=== PATIENT | female | born 1940 | race Caucasian/White ===

== ENCOUNTER 2017-08-28 17:08 | Outpatient (CLI) | payer MEDICARE ==
--- NOTE | 2017-08-28 19:48 | SJPRAD ---
LEFT RIBS FOUR VIEWS 08/28/17 HISTORY: Fall. Left chest wall injury. FINDINGS: No displaced rib fracture or pneumothorax are apparent. Radiopaque sutures project over the left low er neck. IMPRESSION: No significant abnormalities are demonstrated. POS: ASIA
== END 2017-08-28 17:09 | disposition home or self-care (01) ==
LOC: MWLC RAD 17:08
PROVIDERS: ATTEND Internal Medicine Geriatric Medicine
DX: R10.9 Unspecified abdominal pain (principal)

== ENCOUNTER 2017-12-21 15:17 | Outpatient (CLI) | payer MEDICARE | END 2017-12-21 15:18 | disposition home or self-care (01) | LOC: BICMAMMO 15:17 | PROVIDERS: ATTEND Internal Medicine Geriatric Medicine | DX: Z12.31 Encounter for screening mammogram for malignant neoplasm of breast (principal); Z80.3 Family history of malignant neoplasm of breast | CPT/HCPCS: 77063; 77067 ==

== ENCOUNTER 2018-04-19 10:04 | Outpatient (CLI) | payer MEDICARE | END 2018-04-19 10:05 | disposition home or self-care (01) | LOC: BICRAD 10:04 | PROVIDERS: ATTEND Neurological Surgery | DX: M54.16 Radiculopathy, lumbar region (principal); M43.16 Spondylolisthesis, lumbar region | CPT/HCPCS: 72100 ==

== ENCOUNTER 2018-04-30 16:04 | Outpatient (CLI) | payer MEDICARE | END 2018-04-30 16:05 | disposition home or self-care (01) | LOC: BICRAD 16:04 | PROVIDERS: ATTEND Internal Medicine Geriatric Medicine | DX: Z01.818 Encounter for other preprocedural examination (principal) | CPT/HCPCS: 71046 ==

== ENCOUNTER 2018-06-18 09:00 | Inpatient (IN) | payer MEDICARE ==
[2018-06-18 16:20] VITALS: BMI 22.4
--- NOTE | 2018-06-19 12:40 | HP ---
HISTORY OF PRESENT ILLNESS: This is a very pleasant 78-year-old female who reports to our office for 1 year history of low back pain. She states there was no injury associated, however, it has progres sively gotten worse in the last year. She states that if she has to pick her legs up to step into he r tub they feel very heavy. There are times that she has to cough or sneeze and she will have to sit down because it increases her pain. She has left greater than right pain down into her foot. If sh e sits for any length of time, she gets tingly and numbness on the left side. If she walks for any l ength of time, she gets relief when she bends over, like leaning on the cart in the grocery store. H er pain level fluctuates from a 5 to a 10/10. The patient has tried epidural steroid injections in t he past without much benefit and she has also had physical therapy and a course of medications. Thes e do not give her much relief either. REVIEW OF SYSTEMS: A 10-point review of systems has been completed and is otherwise negative other t ibarra stated above in the HPI. PAST MEDICAL HISTORY: Thyroid benign bilateral adenoma, hypertension, vertigo, aortic aneurysm. PAST SURGICAL HISTORY: Ovarian cyst removal, thyroidectomy, several dilation and curretage, menstrua l difficulties, right breast cyst removal in her late 30s. FAMILY HISTORY: Father is , diagnosed with hypertension, heart disease, stroke, and cancer. Mother is , diagnosed with diabetes and cancer. Patient has 1 son who from a he art attack and 1 son that is alive and 1 daughter that is alive. SOCIAL HISTORY: The patient is a nonsmoker. Drinks wine occasionally. Does not use any other illic it drugs. She lives alone. She is retired, with 2 children and drinks caffeine daily. MEDICATIONS: Takes a multivitamin, aspirin 81 mg, tramadol, acetaminophen, metoprolol, levothyroxine , sertraline. ALLERGIES: PENICILLIN, EPINEPHRINE. PHYSICAL EXAMINATION: CONSTITUTIONAL: Well-appearing, well-nourished, alert. NEUROLOGIC: Mental status, oriented to time, place and person. Normal attention span and concentrat ion. Speech is spontaneous and fluent comprehension intact. Content appropriate. Normal [facility]. CRANIAL NERVES: Pupils equal, round, reactive to light. Extraocular movements are intact. Hearing is intact. MOTOR: Muscle strength normal in lower extremities. Muscle tone and bulk normal in lower extremitie s, 5/5 bilateral strength in IP, KE, KS, DP, PS, EHL, no radiculopathy, negative single leg raise kieran ateral, rotation of bilateral hips normal, tender to palpate at L5. DEEP TENDON REFLEXES: 2+ patellar bilaterally, 1+ ankle bilaterally. No clonus. SENSORY: Light touch intact. Gait and station sit to stand, slow normal gait. RESPIRATORY: Normal work of breathing on room air. SKIN: No rashes or lesions on exposed skin. PSYCHIATRIC: Normal mood and affect. IMAGING: MRI of the lumbar spine shows anterolisthesis of L4 on L5. She has a significant compressi on of the spinal canal. ASSESSMENT AND PLAN: Spondylolisthesis of L4-L5 with lumbar radiculopathy. Dr. Rivera has offere d a laminectomy with a TLIF at L4-L5. The risks and benefits of surgery have been discussed. The ri sks discussed included, but were not limited to bleeding, infection, CSF leak, nerve damage, weakness , incontinence, cauda equina injury, arachnoiditis, paralysis, ventilator dependence, wheelchair depe ndence, loss of vision, hardware misplacement, cardiopulmonary complications of anesthesia or . Long-term complications have been discussed and included, but were not limited to degradation of melissa rounding disks and the need for further surgery. The patient states that she understands the risks o f surgery and is willing to move forward.
[2018-06-20] MEDS ORDERED: Levofloxacin 500 mg/D5W 100 ml Premix Bag ONE (06:14)
[2018-06-20] MEDS ORDERED: Clindamycin/D5W 900 mg/50 ml Premix Bag ONE (06:14)
[2018-06-20] MEDS ORDERED: Sodium Chloride 0.9% 20 ML ONE (06:17)
[2018-06-20] MEDS ORDERED: Bupivacaine HCl 0.5%/Epinephrine 1:200,000/PF 30 ml Vial ONE (06:17)
[2018-06-20] MEDS ORDERED: Thrombin 5000 UNITS/5 ML VIAL ONE ×2 (06:18)
[2018-06-20] MEDS ORDERED: Fentanyl 250 MCG/5 ML VIAL ONE (06:51)
[2018-06-20] MEDS ORDERED: Bupivacaine PF 0.5% 30 ML VIAL ONE (07:45)
[2018-06-20] MEDS ORDERED: Ondansetron HCl/PF 4 MG/2 ML Vial IVP PRN ×2 (11:38→13:59)
[2018-06-20] MEDS ORDERED: Promethazine HCl 25 MG/ML VIAL IM PRN (11:38)
[2018-06-20] MEDS ORDERED: Promethazine HCl 25 MG/ML VIAL SLOW IVP PRN (11:38)
[2018-06-20] MEDS ORDERED: Fentanyl 100 MCG/2 ML VIAL ONE (11:55)
[2018-06-20] MEDS ORDERED: Mag-Al 1200 mg/1200 mg/30 ML UDCUP PO PRN (13:59)
[2018-06-20] MEDS: Sodium Chloride 0.9% 1,000 ML IV SCH (13:59)
[2018-06-20] MEDS ORDERED: Promethazine 25 MG TAB PO PRN (13:59)
[2018-06-20] MEDS ORDERED: Milk Of Magnesia 30 ML UDCUP PO PRN (13:59)
[2018-06-20] MEDS ORDERED: diphenhydrAMINE 25 MG CAP PO PRN (13:59)
[2018-06-20] MEDS ORDERED: Promethazine HCl 12.5 MG SUPP PR PRN (13:59)
[2018-06-20] MEDS ORDERED: Acetaminophen/Codeine 30-300mg Tablet PO PRN ×2 (13:59)
[2018-06-20] MEDS ORDERED: Zolpidem Tartrate 5 MG TAB PO PRN (13:59)
[2018-06-20] MEDS ORDERED: tiZANidine HCl 4 MG TAB PO PRN (13:59)
[2018-06-20] MEDS ORDERED: Acetaminophen 650 MG Suppository PR PRN (13:59)
[2018-06-20] MEDS ORDERED: Bisacodyl 10 MG SUPP PR PRN (13:59)
[2018-06-20] MEDS ORDERED: Fleet Enema 133 ML BOT PR PRN (13:59)
[2018-06-20] MEDS ORDERED: diphenhydrAMINE 50 MG/ML VIAL IVP PRN (13:59)
--- NOTE | 2018-06-20 14:06 | OP ---
DATE OF PROCEDURE: 06/20/2018 NEUROSURGERY OPERATIVE REPORT SURGEON: Karen Rivera M.D. FILM MAKER: Rachael Arevalo PA-C. PREOPERATIVE INDICATION: Prevent neurological deterioration, treat pain, treat instability. PREOPERATIVE DIAGNOSES: L4-L5 spondylolisthesis with significant canal and foraminal stenosis causin g radiculopathy and neurogenic claudication. POSTOPERATIVE DIAGNOSES: L4-L5 spondylolisthesis with significant canal and foraminal stenosis causi ng radiculopathy and neurogenic claudication. OPERATIVE PROCEDURE: Decompressive laminectomy, medial facetectomy and foraminotomy for treatment of foraminal and canal stenosis, transforaminal lumbar interbody arthrodesis, placement of intervertebr al biomechanical device, pedicle screw and juan instrumentation, posterolateral arthrodesis, local mor selized autograft and morselized Allograft, all at L4-L5. PREOPERATIVE MEDICATION: Clindamycin 900 mg IV and Levaquin 500 mg IV. DRAIN NUMBER: 1. DRAIN TYPE: 10-Gh[place] Ashu. PROCEDURE IN DETAIL: The patient was brought to the operating room. General endotracheal anesthesia was induced. The patient was positioned prone on the Shilo frame with the appropriate attachments to pad the chest and hips. A lateral fluoro radiograph was used to plan our incision. The lumbar s kin was sterilely prepped and draped. We opened with a 10-blade knife and controlled bleeding with b ipolar and monopolar cautery. We used monopolar cautery to dissect through subcutaneous tissues to t he thoracodorsal fascia. We incised the fascia in the midline and reflected the paraspinal muscles o ff the spinous process and lamina of L3, L4, L5. A self-retaining retractor was placed and a lateral fluoro radiograph confirmed the levels upon which we were operating. We then carried our dissection over the facet joints at L3-L4 and L4-L5 to identify the transverse processes of L4 and L5 bilateral ly. We irrigated with bacitracin irrigation. Using Adson and Kerrison rongeurs, we fashioned a lami nectomy of L4 and L5 and the superior portion of L5. The majority of the canal compression was just below the L4-L5 interspace. The foraminal stenosis with severe from spondylolisthesis at L4-L5. We widened each foramen. We decompressed the canal until we were even with the pedicles at L4 and L5 bi laterally. We irrigated copiously with bacitracin irrigation and turned our attention to arthrodesis . We performed a wide foraminotomy and removal of the abnormal facet at L4-L5 on the left side. We use d this entry way to access the intervertebral space. We incised the disk space with an 11 blade knif e and removed disk contents using curettes and rongeurs. We prepared the endplates for arthrodesis w ith curettes and measured the height of the interspace with a bone rasp. A 10 mm PEEK graft was brou ght into the field. This was loaded with our fusion substrate. That substrate was created on the ck table with a combination of demineralized bone matrix and morselized autograft from our laminectom y bone. The laminectomy bone was cleaned of all soft tissue attachments before it was morcellized in to the demineralized bone matrix. With the PEEK graft loaded with bone graft, it was advanced into t he interspace under radiographic guidance to the appropriate depth. We turned our attention to pedic le screw instrumentation. Using bony anatomic landmarks, palpation of the medial portion of the pedi cles and a lateral fluoro radiograph as a guide, we chose entry points for our pedicle screws. A bon e awl created the trajectories through the pedicles and we tapped each trajectory with a threaded tap . We probed the trajectories and found them completely encased in bone and then we placed pedicle sc rews at L4 and L5 bilaterally. A 360-degree image set was generated with our isocentric C-arm confir benjamin adequate positioning of our pedicle screw instrumentation. We then irrigated with bacitracin ir rigation. We decorticated the transverse processes on both sides and left demineralized bone matrix and morselized autograft over the decorticated bone as our posterolateral fusion substrate. Rods wer e brought down into the screw heads and caps tightened over the rods. We compressed across the inter space before final tightening with a [id number] mechanism. We ensured that the foramina w ere still patent and then we irrigated the center of the wound with bacitracin irrigation. We treate d the wound with vancomycin powder, tunneled a drain inferiorly through a separate stab incision and closed our wound in anatomic layers over the drain. This was a clean case and no contamination.
[2018-06-20] MEDS ORDERED: PROPOFOL 200 MG/20 ML VIAL ONE (14:54)
[2018-06-20] MEDS ORDERED: Dexamethasone 20 MG/5 ML VIAL ONE (14:54)
[2018-06-20] MEDS ORDERED: Ondansetron HCl/PF 4 MG/2 ML Vial ONE (14:54)
[2018-06-20] MEDS ORDERED: ePHEDrine/0.9% NaCl/PF SYRINGE 50 mg/10 ml ONE (14:54)
[2018-06-20] MEDS: Clindamycin/D5W 900 MG in Premix Bag 1 BAG IVPB SCH ×3 (16:17→23:30)
[2018-06-20] MEDS: Metoprolol Tartrate 100 MG TAB PO SCH (21:16)
[2018-06-20] MEDS: Acetaminophen 325 MG TAB PO PRN (23:33)
[2018-06-21] MEDS: Sodium Chloride 0.9% 1,000 ML IV SCH ×2 (06:00→16:50)
--- NOTE | 2018-06-21 07:48 | PRG ---
DATE OF SERVICE: 06/21/2018 I saw Ms. Treviño in her hospital room this morning. She has been back and forth to the bathroom. She does not notice the same pain in her legs that she had before surgery. She is pleased with the operation. The back is sore and she gets lightheaded, but otherwise she is doing quite well. Her vital signs overnight have been stable. Her neurological examination is reassuring. We will dean e sure she has the appropriate bracing. I will have physical therapy visit with her today. They dee dee l decide whether she is a candidate for inpatient rehabilitation or safe for activities of daily daysi rachel.
[2018-06-21] MEDS: Clindamycin/D5W 900 MG in Premix Bag 1 BAG IVPB SCH ×3 (08:06→23:27)
[2018-06-21] MEDS: Levothyroxine Sodium 50 MCG TAB PO SCH (08:07)
[2018-06-21] MEDS: Acetaminophen 325 MG TAB PO PRN (08:07)
[2018-06-21] MEDS: Multivitamin W/ Minerals 1 TAB PO SCH (08:07)
[2018-06-21] MEDS: Metoprolol Tartrate 100 MG TAB PO SCH ×2 (08:07→21:35)
[2018-06-22] MEDS: Sodium Chloride 0.9% 1,000 ML IV SCH ×2 (00:23→16:56)
[2018-06-22] MEDS: Multivitamin W/ Minerals 1 TAB PO SCH (08:21)
[2018-06-22] MEDS: Clindamycin/D5W 900 MG in Premix Bag 1 BAG IVPB SCH ×2 (08:21→16:56)
[2018-06-22] MEDS: Levothyroxine Sodium 50 MCG TAB PO SCH (08:21)
[2018-06-22] MEDS: Metoprolol Tartrate 100 MG TAB PO SCH ×2 (08:21→22:37)
[2018-06-22] MEDS: Acetaminophen 325 MG TAB PO PRN (08:30)
--- NOTE | 2018-06-22 09:26 | PRG ---
DATE OF SERVICE: 06/22/2018 Ms. Treviño is 2 days out from decompression and fusion of lumbar spine. She has had no fevers ove rnight. Her other vital signs are stable. She is up walking yesterday with assistance. She made it up and down some stairs. Getting in and out of bed requires more effort than she has and she requir es assistance doing that. For activities of daily living, her physical therapy team has recommended inpatient rehabilitation. We can make a transfer to that facility once the drain output tapers off.
[2018-06-23] MEDS: Clindamycin/D5W 900 MG in Premix Bag 1 BAG IVPB SCH ×3 (00:13→16:03)
[2018-06-23] MEDS: Metoprolol Tartrate 100 MG TAB PO SCH ×2 (08:50→20:58)
[2018-06-23] MEDS: Levothyroxine Sodium 50 MCG TAB PO SCH (08:50)
[2018-06-23] MEDS: Multivitamin W/ Minerals 1 TAB PO SCH (08:50)
--- NOTE | 2018-06-23 08:50 | PRG ---
DATE OF SERVICE: 06/23/2018 SUBJECTIVE: I saw Ms. Treviño in her hospital room this morning. She recounts to me an episode ye sterday of feeling faint. She is sitting in a chair in the sunshine by the window of her room when s he began to feel hot. She had cold sweats and she is quite weak. She had to get back in bed, after a long nap, she felt much better. This was a one-time event since she has been in the hospital. She feels much better this morning. Ms. Treviño's drain is still on. I do not see any fevers recorded from yesterday and her other vital signs are stable. Her drain outp ut is over 5 mL an hour on average. It is trending down, however. Ms. Treviño's neurological examination is stable. My plan for Ms. Treviño is to monitor drain output and then [facility] the drain is removed. I think we will get to the point where the drain can be removed either this afternoon or tomorrow morning. This would coincide nicely with the ability to transfer her tomorrow. Insurance approval will be necessary and she is living alone independently a nd needs to be quite safe for activities of daily living before she is discharged.
[2018-06-23] MEDS: Sodium Chloride 0.9% 1,000 ML IV SCH ×2 (08:51→21:36)
[2018-06-23 09:23] LABS: Bilirubin Negative (Negative); Blood, Urine Negative (Negative); Clarity CLEAR (Clear); Glucose, Urine (Dipstick) Negative (Negative); Leukocyte Negative (Negative); Nitrite Negative (Negative); Protein, Urine (Dipstick) Negative (Neg-Trace); Specific Gravity, Urine 1.007 (1.002-1.036); Urobilinogen 0.2 mg/dL (0.2-1.0)
[2018-06-24] MEDS: Clindamycin/D5W 900 MG in Premix Bag 1 BAG IVPB SCH ×4 (00:10→23:54)
--- NOTE | 2018-06-24 07:36 | PRG ---
DATE OF SERVICE: 06/24/2018 Ms. Treviño is 4 days out from decompression fusion lumbar spine. She has been up with physical jalil attempting to get into the hallway. She is not quite safe for activities of daily living and s he does live alone. Her vital signs have been stable. I am looking at her drain output and it is ta pering off, but not quite below our threshold for removal. I think we will get there this morning. In fact by lunch time I believe the drain could be removed. The neurological examination is reassuring. When Ms. Treviño is approved for inpatient rehabilitation, we can make the transfer. I believe her drain will come out today and then we could stop her IV antibiotics.
[2018-06-24] MEDS: Levothyroxine Sodium 50 MCG TAB PO SCH (08:56)
[2018-06-24] MEDS: Multivitamin W/ Minerals 1 TAB PO SCH (10:39)
[2018-06-24] MEDS: Metoprolol Tartrate 100 MG TAB PO SCH ×2 (10:39→20:54)
[2018-06-24] MEDS: Sodium Chloride 0.9% 1,000 ML IV SCH (12:19)
[2018-06-25] MEDS: Sodium Chloride 0.9% 1,000 ML IV SCH ×2 (01:34→15:56)
[2018-06-25] MEDS: Levothyroxine Sodium 50 MCG TAB PO SCH (09:20)
[2018-06-25] MEDS: Acetaminophen 325 MG TAB PO PRN (09:20)
[2018-06-25] MEDS: Clindamycin/D5W 900 MG in Premix Bag 1 BAG IVPB SCH ×2 (09:20→15:56)
[2018-06-25] MEDS: Multivitamin W/ Minerals 1 TAB PO SCH (10:07)
[2018-06-25] MEDS: Metoprolol Tartrate 100 MG TAB PO SCH ×2 (10:07→20:00)
--- NOTE | 2018-06-25 11:22 | PRG ---
DATE OF SERVICE: 06/25/2018 Ms. Violet Treviño is starting her 6th hospital day with us. The drain has been in over the weekend, but it has low enough output this morning to be removed. She is waiting on inpatient rehabilitation approval and transfer, which could happen as early as today. The neurological function is quite goo d. She is not quite safe for activities of daily living independently yet and for this reason, rehab ilitation was approved. I am going to see her when she is out of the rehab. We went over wound care and activity restrictions.
[2018-06-25 21:16] VITALS: BP 120/71; TEMP 97.6
== END 2018-06-25 21:05 | DRG 455 ==
LOC: SURG A 06-20 05:46 → SURG B 06-20 13:29
PROVIDERS: ADMIT Neurological Surgery; ATTEND Neurological Surgery
PROC: 0SG00AJ Fusion of Lumbar Vertebral Joint with Interbody Fusion Device, Posterior Approach, Anterior Column, Open Approach (ICD-10-PCS; principal; 2018-06-20)
PROC: 0SG0071 Fusion of Lumbar Vertebral Joint with Autologous Tissue Substitute, Posterior Approach, Posterior Column, Open Approach (ICD-10-PCS; 2018-06-20)
DX: M43.16 Spondylolisthesis, lumbar region (principal); M48.062 Spinal stenosis, lumbar region with neurogenic claudication; M54.16 Radiculopathy, lumbar region; I71.9 Aortic aneurysm of unspecified site, without rupture; I10 Essential (primary) hypertension; Z79.82 Long term (current) use of aspirin; Z01.812 Encounter for preprocedural laboratory examination; M48.061 Spinal stenosis, lumbar region without neurogenic claudication
CPT/HCPCS: 76001; 81003; 85027; 85610; 85730; 96374; A4216; C1713; C1768; G8978-GP-CL; G8979-GP-CJ; G8987-GO-CJ; G8988-GO-CI; J0670; J1100; J1956; J2405; J2704; J3010; J3370; J3490; S0020

== ENCOUNTER 2018-06-18 15:44 | Outpatient (CLI) | payer MEDICARE ==
[2018-06-18 17:08] LABS: Hemoglobin 12.7 g/dL (12.0-16.0); Mean Corpuscular HGB CONC 33.3 g/dL (32.0-36.0); Mean Corpuscular Hemoglobin 31.6 pg (27.0-31.0); Platelet Count 324 thou/uL (130-400); RBC Distribution Width 11.2 % (11.5-14.5); Red Blood Cell (RBC) Count 4.02 mill/uL (4.20-5.40); White Blood Cell (WBC) Count 7.4 thou/uL (4.8-10.8)
[2018-06-18 17:25] LABS: PTT 30.6 SEC (22.9-36.1); Prothrombin Time 13.3 SEC (12.0-14.7)
== END 2018-06-18 15:45 | disposition home or self-care (01) ==
LOC: LABBT 15:44
PROVIDERS: ATTEND Neurological Surgery
DX: Z01.812 Encounter for preprocedural laboratory examination (principal); M48.061 Spinal stenosis, lumbar region without neurogenic claudication; M43.16 Spondylolisthesis, lumbar region
CPT/HCPCS: 85027; 85610; 85730

== ENCOUNTER 2018-08-16 14:37 | Outpatient (CLI) | payer MEDICARE ==
--- NOTE | 2018-08-16 16:46 | RAD ---
TWO VIEWS OF THE LUMBAR SPINE 08/16/18 COMPARISON: 04/19/18 HISTORY: Evaluate lumbar spine following surgery. FINDINGS: Posterior pedicle screws noted at the L4 and L5 levels with vertically oriented interlocking rods. Th ere is anterolisthesis of L4 on L5 measuring approximately 1.2 cm, similar when compared to the prior exam. There is a new intervertebral disc device at L4-5. No additional areas of anterolisthesis or r etrolisthesis. Bilateral laminectomy changes are seen at the postoperative site. Bone graft material is seen adjacent to the lateral aspect of the new postoperative hardware posteriorly. IMPRESSION: Postoperative changes as described above. POS: ASIA
== END 2018-08-16 14:38 | disposition home or self-care (01) ==
LOC: TBSIIMAG 14:37
PROVIDERS: ATTEND Neurological Surgery
DX: M54.5 Low back pain (principal); Z98.890 Other specified postprocedural states
CPT/HCPCS: 72100

== ENCOUNTER 2018-11-22 15:50 | Outpatient (CLI) | payer MEDICARE ==
--- NOTE | 2018-11-22 16:30 | RAD ---
LUMBAR SPINE 2 VIEWS: Date: 11/22/18 HISTORY: Low back pain. COMPARISON: 08/16/18. FINDINGS: Pedicle screws noted at L4-L5 with stable anterolisthesis. Scoliotic changes appear stable. IMPRESSION: Stable postoperative laminectomy and pedicle screw placement changes at L4-L5 with stable anterolisth esis from prior 08/16/18 study. POS: TPC
== END 2018-11-22 15:51 | disposition home or self-care (01) ==
LOC: BICRAD 15:50
PROVIDERS: ATTEND Neurological Surgery
DX: M54.5 Low back pain (principal); M43.16 Spondylolisthesis, lumbar region; Z98.890 Other specified postprocedural states
CPT/HCPCS: 72100

== ENCOUNTER 2018-12-24 13:47 | Outpatient (CLI) | payer MEDICARE ==
--- NOTE | 2018-12-24 16:07 | BD ---
DEXA BONE DENSITY EXAM: HISTORY: A 78-year-old postmenopausal female for screening. COMPARISON: None. FINDINGS: BMD (g/cm2) T-SCORE LEFT FEMORAL NECK 0.596 -2.3 TOTAL PROXIMAL LEFT FEMUR: 0.803 -1.1 RIGHT FEMORAL NECK 0.594 -2.3 TOTAL PROXIMAL RIGHT FEMUR: 0.798 -1.2 IMPRESSION: Osteopenia This patient has a 10 year WHO fracture risk for a major osteoporotic fracture of 15% and for a hip f racture of 4.7%. POS: C
--- NOTE | 2018-12-25 15:33 | MMO ---
Bilateral MAMMO Bilat Screen [facility]DI[facility]KEEGAN. CLINICAL HISTORY: Patient is 78 years old and is seen for screening. The patient has the following family history of breast cancer: daughter, at age 49. The patient has no personal history of cancer. The patient has a history of right Excisional Biopsy in 1974 - benign. VIEWS: The views performed were: bilateral craniocaudal with tomosynthesis; bilateral mediolateral oblique with tomosynthesis; and right exaggerated craniocaudal. FILMS COMPARED: The present examination has been compared to prior imaging studies performed at [facility] on 12/21/2017, and at [facility] on 03/25/2014, 11/17/2015 and 04/20/2017. MAMMOGRAM FINDINGS: There are scattered fibroglandular densities. Benign calcifications are noted bilaterally. There are no suspicious masses, calcifications or areas of architectural distortion. IMPRESSION: FINDINGS IN BOTH BREASTS ARE BENIGN. A ROUTINE FOLLOW-UP MAMMOGRAM IN 1 YEAR IS RECOMMENDED. THE RESULTS OF THIS EXAM WERE SENT TO THE PATIENT. ACR BI-RADS Category 2 - Benign finding MAMMOGRAPHY NOTE: 1. A negative mammogram report should not delay a biopsy if a dominant of clinically suspicious mass is present. 2. Approximately 10% to 15% of breast cancers are not detected by mammography. 3. Adenosis and dense breasts may obscure an underlying neoplasm.
== END 2018-12-24 13:48 | disposition home or self-care (01) ==
LOC: BICMAMMO 13:47
PROVIDERS: ATTEND Internal Medicine Geriatric Medicine
DX: Z12.31 Encounter for screening mammogram for malignant neoplasm of breast (principal); Z13.820 Encounter for screening for osteoporosis; M85.851 Other specified disorders of bone density and structure, right thigh; M85.852 Other specified disorders of bone density and structure, left thigh; Z80.3 Family history of malignant neoplasm of breast
CPT/HCPCS: 77063; 77067; 77080

== ENCOUNTER 2019-02-09 17:53 | Inpatient (IN) | payer MEDICARE ==
[~2019-02-09 17:53] MED LIST: Amiodarone 150 MG/3 ML VIAL ONE; Heparin 10,000 UNITS/ 10 ML VIAL ONE; Sodium Chloride 0.9% Irrigation 1000 ML BOT ONE
[2019-02-09] MEDS ORDERED: Ondansetron ODT 8 MG TAB ONE (18:13)
[2019-02-09] MEDS ORDERED: Aspirin Chewable 81 MG TAB ONE (18:26)
[2019-02-09] MEDS ORDERED: Nitroglycerin 2% Ointment 1 INCH/1 GM Packet ONE (18:26)
[2019-02-09 18:31] LABS: #Basophils 0.1 thou/uL (0.0-0.2); #Eosinphils 0.2 thou/uL (0.0-0.7); #Lymphocytes 3.1 thou/uL (1.20-3.40); #Monocytes 0.6 thou/uL (0.11-0.59); #Neutrophils 3.6 thou/uL (1.40-6.50); %Basophils 1.2 % (0.0-1.0); %Eosinophils 3.3 % (0.0-10.0); %Lymphocytes 40.4 % (21.0-51.0); %Monocytes 7.5 % (0.0-10.0); %Neutrophils 47.7 % (42.0-75.0); Hemoglobin 12.4 g/dL (12.0-16.0); Mean Corpuscular HGB CONC 34.4 g/dL (32.0-36.0); Mean Platelet Volume 8.5 fL (7.4-10.4); Platelet Count 283 thou/uL (130-400); RBC Distribution Width 11.5 % (11.5-14.5); Red Blood Cell (RBC) Count 3.89 mill/uL (4.20-5.40); White Blood Cell (WBC) Count 7.6 thou/uL (4.8-10.8)
[2019-02-09] MEDS ORDERED: Magnesium 2 GM/50 ML BAG (IN WATER) ONE (18:44)
--- NOTE | 2019-02-09 18:44 | RAD ---
XR Chest 1 View Portable HISTORY: Chest pain and shortness of breath COMPARISON: 04/30/2020 FINDINGS: The heart size is normal. The lungs are well expanded without focal areas of consolidation, pneumothorax or pleural effusions. IMPRESSION: No radiographic evidence of acute cardiopulmonary process.
[2019-02-09] MEDS ORDERED: Tenecteplase 50 MG - STEMI KIT ONE (18:51)
[2019-02-09 18:52] LABS: ALT (SGPT) 14 U/L (8-55); AST (SGOT) 21 U/L (5-34); Albumin 4.2 g/dL (3.4-4.8); Alkaline Phosphatase 72 U/L (40-150); Anion Gap 13 mmol/L (10-20); BUN (Urea Nitrogen) 22 mg/dL (9.8-20.1); Bilirubin, Total 0.6 mg/dL (0.2-1.2); CK (CPK) 121 U/L (29-168); Calc. Creatinine Clearance 0 mL/min (70-130); Calcium 9.7 mg/dL (7.8-10.44); Carbon Dioxide 25 mmol/L (23-31); Chloride 105 mmol/L (98-107); Estimated GFR-MDRD 50; Globulin 2.8 g/dL (2.4-3.5); Glucose 120 mg/dL (83-110); Lipase 51 U/L (8-78); Potassium 4.1 mmol/L (3.5-5.1); Sodium 139 mmol/L (136-145)
[2019-02-09] MEDS ORDERED: Heparin 10,000 UNITS/1 ML VIAL ONE ×2 (18:57→19:47)
[2019-02-09 19:13] LABS: CKMB 2.5 ng/mL (0-6.6)
[2019-02-09] MEDS ORDERED: Aggrastat 12.5 MG/250 ML 250 ML ONE (19:47)
[2019-02-09] MEDS ORDERED: Mag-Al 1200 mg/1200 mg/30 ML UDCUP PO PRN (20:08)
[2019-02-09] MEDS ORDERED: Acetaminophen/Codeine 30-300mg Tablet PO PRN (20:08)
[2019-02-09] MEDS ORDERED: Zolpidem Tartrate 5 MG TAB PO PRN (20:08)
[2019-02-09] MEDS ORDERED: Aggrastat 12.5 MG/250 ML 250 ML IVPB SCH (20:15)
[2019-02-09] MEDS ORDERED: Sodium Chloride 0.9% 1,000 ML IV SCH (20:15)
[2019-02-09] MEDS ORDERED: Morphine 2 MG/ML SYRINGE SLOW IVP PRN (20:18)
[2019-02-09 20:30] VITALS: BMI 21.4
[2019-02-09] MEDS ORDERED: Amiodarone 450 MG in Dextrose 5% in Water 250 ML IVPB SCH (20:30)
[2019-02-09] MEDS ORDERED: Furosemide 20 MG/2 ML VIAL SLOW IVP SCH (20:45)
[2019-02-09 21:10] LABS: CKMB 7.3 ng/mL (0-6.6)
[2019-02-09] MEDS ORDERED: Prevnar 13-Val Conj/PF 0.5 ML SYRINGE IM ONE (21:15)
--- NOTE | 2019-02-09 21:15 | HP ---
CHIEF COMPLAINT: Chest pain. HISTORY OF PRESENT ILLNESS: Ms. Treviño is a very pleasant 78-year-old white female, who comes to the hospital for chest pain. She was seen in the ER and was found to have anterior ST elevation, so Cardiology was consulted. On my arrival , she was having ongoing chest pain with anterior elevations. She was taken emergently to the catheterization lab where she was found to have an occluded LAD. She successfully underwent stenting with a bare-metal stent and she had she had a 2nd stent on the mid LAD as she had a 70% obstruction there. Her STs leveled out and normalized after that and she was pain free. In the ER, she did have an episode of VFib arrest. She was shocked and had chest compressions briefly. She was placed on amiodarone at that time. She remains on amiodarone. She has not had any arrhythmias since. Further imaging of the left circumflex showed no significant disease. On the right coronary artery, there is a very focal 90% lesion in the mid vessel. PAST MEDICAL HISTORY: 1. Thyroid disease. 2. Hypertension. 3. Vertigo. 4. Anxiety. PAST SURGICAL HISTORY: 1. Ovarian cyst resection. 2. Thyroidectomy. 3. Right breast cyst removal. 4. L4-L5 laminectomy in June of last year. OUTPATIENT MEDICATIONS: 1. Multivitamin a day. 2. Promethazine 25 mg a day. 3. Sertraline 25 mg a day. 4. Levothyroxine 50 mcg a day. 5. Metoprolol tartrate 100 mg twice a day. 6. Aspirin 81 a day. FAMILY HISTORY: Mother of lung cancer. Father, hypertension, heart disease and stroke. One son of an NM at 46. SOCIAL HISTORY: No alcohol, tobacco, or drugs. ALLERGIES: PENICILLIN AND EPINEPHRINE. REVIEW OF SYSTEMS: A 12-point review of systems was done and was found to be negative unless stated in the history of present illness. PHYSICAL EXAMINATION: VITAL SIGNS: Blood pressure 116/82, respiratory rate 17, saturating 90% on 2 L nasal cannula. She is 5 feet 3 inches and 58.7 kilos, BMI is 22, heart rate was 70. GENERAL: Awake, alert, and oriented x3. No distress. HEENT: Normocephalic atraumatic. NECK: Supple. LUNGS: Have mild crackles at bases. CARDIOVASCULAR: S1 and S2. No S3 or S4. No murmurs. ABDOMEN: Soft. Positive bowel sounds. EXTREMITIES: No edema. SKIN: Warm and dry. LABORATORY DATA: Laboratory work was reviewed. ASSESSMENT/PLAN: 1. Acute anterior ST-elevation myocardial infarction. 2. Ischemic cardiomyopathy. 3. Residual right coronary artery, severe mid focal lesion. 4. Left ventricular function estimated about 40% on left ventriculogram, echocardiogram pending. PLAN: 1. Admit to ICU. 2. Bare-metal stent to LAD placed. 3. We will need a repeat procedure to revascularize the right coronary artery. 4. Brilinta and aspirin for 1 month minimum. 5. High dose statin. 6. Beta-mark and SYMONE inhibitor once blood pressure allows. 7. Amiodarone for at least a total of 12 hours, if not longer. 8. Full code. 9. PPI for stress ulcer prophylaxis. 10. She is on Aggrastat for now for DVT prophylaxis. However, we will start subcu Lovenox tomorrow. Job ID: [id number] MTDD
[2019-02-09] MEDS: TICAGRELOR 90 MG TABLET PO SCH (21:20)
[2019-02-09] MEDS: Atorvastatin Calcium 40 MG TAB PO SCH (21:20)
[2019-02-09] MEDS ORDERED: Ondansetron PF 4 MG/2 ML Vial IVP PRN (21:41)
[2019-02-09] MEDS ORDERED: Norepinephrine 8 MG/0.9% NS 250 ML ONE (21:52)
[2019-02-09] MEDS ORDERED: Norepinephrine 8 MG/250 ML BAG IVPB PRN (21:55)
[2019-02-10 02:51] LABS: CKMB 33.9 ng/mL (0-6.6); Troponin I 7.705 ng/mL (< 0.028)
[2019-02-10] MEDS: Levothyroxine Sodium 50 MCG TAB PO SCH (05:38)
[2019-02-10] MEDS: Aspirin Chewable 81 MG TAB PO SCH (08:37)
[2019-02-10] MEDS: TICAGRELOR 90 MG TABLET PO SCH ×2 (08:39→20:42)
[2019-02-10 08:44] LABS: #Lymphocytes 1.2 thou/uL (1.20-3.40); #Monocytes 0.8 thou/uL (0.11-0.59); #Neutrophils 12.9 thou/uL (1.40-6.50); %Basophils 0.1 % (0.0-1.0); %Eosinophils 0.1 % (0.0-10.0); %Lymphocytes 8.3 % (21.0-51.0); %Monocytes 5.5 % (0.0-10.0); %Neutrophils 86.1 % (42.0-75.0); Hemoglobin 12.1 g/dL (12.0-16.0); Mean Corpuscular HGB CONC 33.2 g/dL (32.0-36.0); Mean Corpuscular Hemoglobin 31.1 pg (27.0-31.0); Mean Corpuscular Volume 93.6 fL (78.0-98.0); Mean Platelet Volume 9.2 fL (7.4-10.4); Platelet Count 286 thou/uL (130-400); RBC Distribution Width 11.5 % (11.5-14.5); Red Blood Cell (RBC) Count 3.89 mill/uL (4.20-5.40)
[2019-02-10 08:56] LABS: ALT (SGPT) 81 U/L (8-55); AST (SGOT) 120 U/L (5-34); Albumin 3.9 g/dL (3.4-4.8); Alkaline Phosphatase 68 U/L (40-150); Anion Gap 19 mmol/L (10-20); BUN (Urea Nitrogen) 21 mg/dL (9.8-20.1); Bilirubin, Total 0.8 mg/dL (0.2-1.2); Calc. Creatinine Clearance 34 mL/min (70-130); Calcium 9.5 mg/dL (7.8-10.44); Carbon Dioxide 20 mmol/L (23-31); Cardiac Risk 3.2 (Less than 4.5); Chloride 102 mmol/L (98-107); Cholesterol 165 mg/dl (< 200 Desired); Estimated GFR-MDRD 44; Globulin 2.8 g/dL (2.4-3.5); Glucose 143 mg/dL (83-110); HDL Cholesterol 51 mg/dL (>60 Neg Risk); LDL Cholesterol, Calculated 94 mg/dL; Potassium 3.7 mmol/L (3.5-5.1); Protein, Total 6.7 g/dL (6.0-8.3); Sodium 137 mmol/L (136-145); Triglycerides 98 mg/dL (Less than 150)
--- NOTE | 2019-02-10 09:09 | PRG ---
DATE OF SERVICE: 02/10/2019 SUBJECTIVE: The patient is doing better today. I discussed Ms. Treviño's history with her. She said at the time of the myocardial infarction, she has had severe bilateral arm pain, which became a severe pressure heaviness in the middle of her chest. She said she has never had symptoms like that before. We discussed in the office that if she ever had pressure in the middle of her chest, it was likely to be cardiac. Therefore, at that time, she did call an ambulance, called 911, but decided to drive herself to the hospital. She did have chest compressions done in the emergency room and cardioversion, apparently defibrillation. The patient subsequently underwent emergent stent implantation to the LAD. There was just a trickle of flow prior to the stents. She had a successful result. Still has severe lesion in the right coronary artery. The patient does have occasional chest pain, but it seems like it is mostly musculoskeletal. OBJECTIVE: VITAL SIGNS: Her blood pressure is 110 systolic, but she is still on low-dose Levophed. Pulse is in the 80s and sinus. LUNGS: Clear. CARDIAC: Normal S1 and S2. ABDOMEN: Soft, nontender. EXTREMITIES: No clubbing or cyanosis. There is no edema. PERTINENT LABORATORY DATA: The peak troponin was 33.9. Potassium 4.1. The EKG shows the ST segments are markedly improved after the successful intervention. ASSESSMENT: 1. Status post ST-elevation myocardial infarction of the anterior wall, successfully treated with stent implantation. 2. Critical lesion in the right coronary artery. 3. Hypotension. PLAN: 1. Wean off Levophed. 2. Stop amiodarone. 3. We will review echocardiogram. 4. Will likely need stent implantation of right coronary artery prior to discharge. It is a critical lesion. Job ID: [id number]
[2019-02-10 09:15] LABS: Free T4 (Free Thyroxine) 1.04 ng/dL (0.70-1.48)
[2019-02-10] MEDS: Enoxaparin Sodium 30 MG/0.3 ML SYRINGE SC SCH (09:34)
--- NOTE | 2019-02-10 10:36 | CON ---
DATE OF CONSULTATION: HISTORY OF PRESENT ILLNESS: A 78-year-old female, who was brought into the hospital last night with chest pain radiation to the left arm. It got worse. About a couple of weeks ago, she had an echo, which was normal. Pain got worse while in the ER. She then was seen by Cardiology. Taken to the director geophysical laboratory and found to have an LAD lesion 70%, for which a bare-metal stent was placed in. She had an episode of VFib in the ER. In the ER, where she was shocked and chest compression briefly and started on amiodarone. This morning, she is complaining of chest pain from the shock, but otherwise unremarkable. PAST MEDICAL HISTORY: Pertinent for otherwise hypertension, hypothyroidism, arthritis, back pain, cholesterol, and peptic ulcer disease. PAST SURGICAL HISTORY: Back surgery done recently, thyroid surgery, breast, D and C. HABITS: Tobacco, none. Alcohol, none. HOME MEDICATIONS: Includes; 1. Zoloft 25. 2. Vitamin. 3. Lopressor 100 twice a day. 4. Synthroid 50. 5. Aspirin. New medicine includes; 1. Brilinta 90 mg twice a day. 2. Aspirin 81. 3. Lovenox. SOCIAL AND FAMILY HISTORY: Unremarkable. REVIEW OF SYSTEMS: Ten-point negative. PHYSICAL EXAMINATION: VITAL SIGNS: Saturations are 95% on supplemental oxygen, temperature 98, blood pressure 107/69, respiratory rate 18, and pulse 80. CHEST: Decreased breath sounds. No wheezing. CARDIAC: Normal S1 and S2. No gallops. ABDOMEN: No masses. LABORATORY DATA: Troponin is elevated at 7. Creatinine is 1.2 elevated. White count 15,000, H and H 12 and 36. Chest x-ray showed no acute infiltrates. ASSESSMENT: 1. Acute coronary syndrome, status post left anterior descending stent. 2. Right coronary artery blockage to undergo stent placement in the next several weeks. 3. Hypothyroidism. 4. Depression. 5. Hypertension. 6. Recent back surgery. PLAN: Pulmonary/Critical Care will follow while in the ICU. I agree with Dr. Daigle. Early ambulation. Supportive care. Consultation note, 60 to 70 minutes, 50% direct patient care. Job ID: [id number]
[2019-02-10] MEDS ORDERED: DOBUTamine 500 mg/250 ml 250 ML IVPB SCH (13:15)
[2019-02-10] MEDS ORDERED: Furosemide 100 MG/10 ML VIAL SLOW IVP SCH (14:00)
[2019-02-10] MEDS: Atorvastatin Calcium 40 MG TAB PO SCH (20:41)
[2019-02-11 05:49] LABS: #Eosinphils 0.1 thou/uL (0.0-0.7); #Lymphocytes 1.9 thou/uL (1.20-3.40); #Neutrophils 8.7 thou/uL (1.40-6.50); %Basophils 0.4 % (0.0-1.0); %Eosinophils 0.4 % (0.0-10.0); %Lymphocytes 16.4 % (21.0-51.0); %Monocytes 8.8 % (0.0-10.0); Hemoglobin 9.9 g/dL (12.0-16.0); Mean Corpuscular HGB CONC 33.2 g/dL (32.0-36.0); Mean Corpuscular Hemoglobin 31.5 pg (27.0-31.0); Mean Platelet Volume 8.8 fL (7.4-10.4); Platelet Count 196 thou/uL (130-400); RBC Distribution Width 11.5 % (11.5-14.5); Red Blood Cell (RBC) Count 3.15 mill/uL (4.20-5.40); White Blood Cell (WBC) Count 11.8 thou/uL (4.8-10.8)
[2019-02-11 06:11] LABS: Anion Gap 11 mmol/L (10-20); BUN (Urea Nitrogen) 19 mg/dL (9.8-20.1); Calc. Creatinine Clearance 36 mL/min (70-130); Carbon Dioxide 27 mmol/L (23-31); Chloride 101 mmol/L (98-107); Estimated GFR-MDRD 46; Glucose 119 mg/dL (83-110); Potassium 3.4 mmol/L (3.5-5.1); Sodium 136 mmol/L (136-145)
[2019-02-11] MEDS: Levothyroxine Sodium 50 MCG TAB PO SCH (06:27)
--- NOTE | 2019-02-11 08:18 | PRG ---
DATE OF SERVICE: 02/11/2019 SUBJECTIVE: This morning awake, alert, responsive, still having pain. OBJECTIVE: VITAL SIGNS: Saturations are 91 on room air, blood pressure 95/60, pulse 80, respiratory rate 18. GENERAL: She is awake, alert, and responsive. CHEST: Decreased breath sounds. No wheezing. CARDIAC: Normal S1 and S2. No gallops or masses. ASSESSMENT: Coronary artery disease, status post stent, left anterior descending artery; hypoxemia; mild azotemia. PLAN: Pulmonary will follow while in the ICU. Continue supportive care, PT. Job ID: [id number]
[2019-02-11] MEDS: TICAGRELOR 90 MG TABLET PO SCH ×2 (09:04→21:18)
[2019-02-11] MEDS: Aspirin Chewable 81 MG TAB PO SCH (09:04)
[2019-02-11] MEDS: Enoxaparin Sodium 30 MG/0.3 ML SYRINGE SC SCH (09:05)
[2019-02-11] MEDS ORDERED: Potassium Chloride 20 MEQ TAB PO SCH (13:15)
--- NOTE | 2019-02-11 13:52 | PRG ---
DATE OF SERVICE: 02/11/2019 SUBJECTIVE: Ms. Treviño is feeling better today, but her blood pressure is relatively low sitting in a chair. She has some pain with a deep breath, but she said she is not short of breath. Most recent blood pressure is 90 systolic, pulse is 120, sitting in the chair. OBJECTIVE: LUNGS: Clear. CARDIAC: Normal S1, normal S2. ABDOMEN: Soft, nontender. EXTREMITIES: No edema. ASSESSMENT: 1. Status post extensive anterior myocardial infarction with a peak troponin of 33.9. 2. Low potassium 3.4. 3. Still has a severe right coronary artery stenosis. PLAN: I would keep her here in the hospital. Hopefully, her anterior wall improve. Then, proceed with stent implantation in the right coronary artery. Job ID: [id number]
[2019-02-11] MEDS: Atorvastatin Calcium 40 MG TAB PO SCH (21:16)
[2019-02-11] MEDS: Metoprolol Tartrate 25 MG TAB PO SCH (21:17)
[2019-02-12 05:00] LABS: #Basophils 0.1 thou/uL (0.0-0.2); #Eosinphils 0.2 thou/uL (0.0-0.7); #Lymphocytes 1.7 thou/uL (1.20-3.40); #Monocytes 0.9 thou/uL (0.11-0.59); #Neutrophils 6.3 thou/uL (1.40-6.50); %Basophils 0.5 % (0.0-1.0); %Eosinophils 1.8 % (0.0-10.0); %Lymphocytes 18.6 % (21.0-51.0); %Neutrophils 69.1 % (42.0-75.0); Hemoglobin 10.1 g/dL (12.0-16.0); Mean Corpuscular HGB CONC 34.1 g/dL (32.0-36.0); Mean Corpuscular Hemoglobin 32.6 pg (27.0-31.0); Mean Corpuscular Volume 95.4 fL (78.0-98.0); Mean Platelet Volume 8.7 fL (7.4-10.4); Platelet Count 221 thou/uL (130-400); RBC Distribution Width 11.7 % (11.5-14.5); Red Blood Cell (RBC) Count 3.11 mill/uL (4.20-5.40); White Blood Cell (WBC) Count 9.2 thou/uL (4.8-10.8)
[2019-02-12 05:19] LABS: Anion Gap 12 mmol/L (10-20); BUN (Urea Nitrogen) 22 mg/dL (9.8-20.1); Calc. Creatinine Clearance 37 mL/min (70-130); Calcium 9.1 mg/dL (7.8-10.44); Carbon Dioxide 27 mmol/L (23-31); Chloride 105 mmol/L (98-107); Estimated GFR-MDRD 48; Glucose 118 mg/dL (83-110); Sodium 140 mmol/L (136-145)
[2019-02-12] MEDS: Levothyroxine Sodium 50 MCG TAB PO SCH (06:30)
--- NOTE | 2019-02-12 07:52 | RAD ---
AP view chest. HISTORY: Status post myocardial infarction. Comparison made to previous exam from 02/09/2019. AP view chest demonstrates EKG leads seen over the chest. The lungs are well aerated. No evidence of active intrathoracic disease seen. No evidence of effusions, pneumonia or pneumothorax seen. IMPRESSION: unremarkable AP view chest.
[2019-02-12] MEDS: TICAGRELOR 90 MG TABLET PO SCH ×2 (08:28→20:58)
[2019-02-12] MEDS: traMADol HCl 50 MG TAB PO PRN ×3 (08:28→21:00)
[2019-02-12] MEDS: Aspirin Chewable 81 MG TAB PO SCH (08:30)
[2019-02-12] MEDS: Enoxaparin Sodium 30 MG/0.3 ML SYRINGE SC SCH (08:30)
--- NOTE | 2019-02-12 08:48 | PRG ---
DATE OF SERVICE: 02/12/2019 SUBJECTIVE: This morning, she is doing well. Less chest pain and less shortness of breath. OBJECTIVE: VITAL SIGNS: Saturations 97% on 2 L, temperature 98, blood pressure 97/62, respiratory rate 18. CHEST: Decreased breath sounds. No wheezing. CARDIAC: Normal S1, S2. No gallops. ABDOMEN: No masses. LABORATORY DATA: Lytes are normal. EKG still shows ST-segment elevation. Chest x-ray this morning shows no acute infiltrates. ASSESSMENT: Status post coronary artery disease status post cardiac cath, emergency left anterior descending stent. PLAN: The patient is scheduled for a repeat cardiac cath with stent in the right coronary. Continue otherwise supportive care and pain relief. We will follow while in the ICU. Job ID: [id number]
[2019-02-12] MEDS: Metoprolol Tartrate 25 MG TAB PO SCH ×2 (10:00→20:58)
--- NOTE | 2019-02-12 10:17 | PRG ---
DATE OF SERVICE: 02/12/2019 SUBJECTIVE: Ms. Treviño feels weak. No chest pain. OBJECTIVE: VITAL SIGNS: Her blood pressure has been low, earlier this morning it is 87/58, most recently 103/62. The pulse when she is sitting up increases, it is 116 now. LUNGS: Clear. CARDIAC: Normal S1 and S2. ABDOMEN: Soft and nontender. EXTREMITIES: There is no edema. DIAGNOSTIC DATA: On the monitor, the ST-segment is still elevated, probably the anterior leads from the recent CT. ASSESSMENT: 1. Status post anterior myocardial infarction, treated with stent implantation, but probably had no reflow phenomenon. 2. Sinus tachycardia. PLAN: 1. Continue beta mark. 2. We will need to hold off on stenting the right coronary until she is more hemodynamically stable. Job ID: [id number]
[2019-02-12] MEDS: Atorvastatin Calcium 40 MG TAB PO SCH (20:58)
[2019-02-13 05:06] LABS: #Eosinphils 0.3 thou/uL (0.0-0.7); #Lymphocytes 1.6 thou/uL (1.20-3.40); #Monocytes 0.9 thou/uL (0.11-0.59); #Neutrophils 5.3 thou/uL (1.40-6.50); %Basophils 0.5 % (0.0-1.0); %Eosinophils 3.9 % (0.0-10.0); %Lymphocytes 19.8 % (21.0-51.0); %Monocytes 10.6 % (0.0-10.0); %Neutrophils 65.2 % (42.0-75.0); Hemoglobin 9.3 g/dL (12.0-16.0); Mean Corpuscular HGB CONC 33.6 g/dL (32.0-36.0); Mean Corpuscular Hemoglobin 32.4 pg (27.0-31.0); Mean Corpuscular Volume 96.5 fL (78.0-98.0); Platelet Count 227 thou/uL (130-400); RBC Distribution Width 11.8 % (11.5-14.5); Red Blood Cell (RBC) Count 2.87 mill/uL (4.20-5.40); White Blood Cell (WBC) Count 8.2 thou/uL (4.8-10.8)
[2019-02-13 05:22] LABS: Anion Gap 12 mmol/L (10-20); BUN (Urea Nitrogen) 20 mg/dL (9.8-20.1); Calc. Creatinine Clearance 47 mL/min (70-130); Calcium 8.7 mg/dL (7.8-10.44); Carbon Dioxide 26 mmol/L (23-31); Chloride 101 mmol/L (98-107); Estimated GFR-MDRD 57; Glucose 114 mg/dL (83-110); Potassium 3.7 mmol/L (3.5-5.1); Sodium 135 mmol/L (136-145)
[2019-02-13] MEDS: Levothyroxine Sodium 50 MCG TAB PO SCH (06:35)
--- NOTE | 2019-02-13 09:18 | PRG ---
DATE OF SERVICE: 02/13/2019 SUBJECTIVE: This morning, she is better, less short of breath, less pain. OBJECTIVE: VITAL SIGNS: Saturations are 93% on room air, respiratory rate 15, temperature 98, blood pressure 90/59. CHEST: No wheezing or crackles. CARDIAC: Normal S1 and S2. No gallops. ABDOMEN: No masses. LABORATORY DATA: Lytes are normal. CBC is unremarkable. ASSESSMENT: Coronary artery disease, status post stent. Chest pain, status post cardiopulmonary resuscitation. PLAN: Disposition as per Cardiology. Pulmonary is going to follow at a distance. Please call if needed. Job ID: [id number]
[2019-02-13] MEDS: Metoprolol Tartrate 25 MG TAB PO SCH ×2 (09:28→20:35)
[2019-02-13] MEDS: Aspirin Chewable 81 MG TAB PO SCH (09:28)
[2019-02-13] MEDS: TICAGRELOR 90 MG TABLET PO SCH ×2 (09:29→20:35)
[2019-02-13] MEDS: Enoxaparin Sodium 30 MG/0.3 ML SYRINGE SC SCH (09:29)
--- NOTE | 2019-02-13 10:38 | PRG ---
DATE OF SERVICE: 02/13/2019 SUBJECTIVE: Ms. Treviño is feeling fine. No chest pain or pressure. OBJECTIVE: VITAL SIGNS: Blood pressure earlier this morning was still low at 93/59 and pulse 90. LUNGS: Clear. CARDIAC: Normal S1, normal S2. ABDOMEN: Soft and nontender. IMAGING STUDIES: EKG, ST segments are still elevated in the anterior leads. ASSESSMENT: 1. Status post anterior myocardial infarction. It looks like there was likely no reflow, with very slow recovery of left ventricular function. 2. She also has right coronary artery stenosis. Discussed with Ms. Treviño that I think it is safest to wait a short time to see if we can see some improvement in her anterior wall. Stenting of the right coronary artery now would pose a significant risk to the patient in case there is any problem at the right coronary lesion or even transient ischemia may be problematic. PLAN: The plan is to go ahead and let her go home tomorrow. She is on dual anti-platelet drugs, statin therapy, beta blockers, and SYMONE inhibitors. We will also get a LifeVest to reduce some risk. Tentatively planned to go home tomorrow. Job ID: [id number]
[2019-02-13] MEDS: Atorvastatin Calcium 40 MG TAB PO SCH (20:36)
[2019-02-13] MEDS: Milk Of Magnesia 30 ML UDCUP PO PRN (22:44)
[2019-02-14] MEDS: Levothyroxine Sodium 50 MCG TAB PO SCH (05:03)
[2019-02-14 05:09] LABS: #Eosinphils 0.4 thou/uL (0.0-0.7); #Lymphocytes 1.6 thou/uL (1.20-3.40); #Monocytes 0.8 thou/uL (0.11-0.59); #Neutrophils 4.4 thou/uL (1.40-6.50); %Basophils 0.6 % (0.0-1.0); %Eosinophils 5.2 % (0.0-10.0); %Lymphocytes 22.2 % (21.0-51.0); %Monocytes 11.3 % (0.0-10.0); %Neutrophils 60.8 % (42.0-75.0); Hemoglobin 9.7 g/dL (12.0-16.0); Mean Corpuscular HGB CONC 34.3 g/dL (32.0-36.0); Mean Corpuscular Hemoglobin 32.5 pg (27.0-31.0); Mean Corpuscular Volume 94.7 fL (78.0-98.0); Mean Platelet Volume 8.8 fL (7.4-10.4); Platelet Count 250 thou/uL (130-400); RBC Distribution Width 11.9 % (11.5-14.5); Red Blood Cell (RBC) Count 2.97 mill/uL (4.20-5.40); White Blood Cell (WBC) Count 7.2 thou/uL (4.8-10.8)
[2019-02-14 05:21] LABS: Anion Gap 12 mmol/L (10-20); BUN (Urea Nitrogen) 19 mg/dL (9.8-20.1); Calc. Creatinine Clearance 46 mL/min (70-130); Calcium 8.8 mg/dL (7.8-10.44); Carbon Dioxide 25 mmol/L (23-31); Chloride 103 mmol/L (98-107); Estimated GFR-MDRD 54; Glucose 109 mg/dL (83-110); Iron 24 ug/dL (50-170); Potassium 3.8 mmol/L (3.5-5.1); Sodium 136 mmol/L (136-145)
[2019-02-14 05:28] LABS: Iron 25 ug/dL (50-170); Iron Binding Capacity, Total 235 mcg/dL (265-497)
[2019-02-14] MEDS: Aspirin Chewable 81 MG TAB PO SCH (10:02)
[2019-02-14] MEDS: Metoprolol Tartrate 25 MG TAB PO SCH (10:02)
[2019-02-14] MEDS: Milk Of Magnesia 30 ML UDCUP PO PRN (10:02)
[2019-02-14] MEDS: TICAGRELOR 90 MG TABLET PO SCH (10:03)
[2019-02-14] MEDS ORDERED: Atorvastatin Calcium 40 MG TAB PO SCH (13:26)
[2019-02-14 15:32] VITALS: BP 102/62; TEMP 98.9
[2019-02-15] MEDS ORDERED: Lisinopril 2.5 MG TAB PO SCH (21:00)
--- NOTE | 2019-02-16 02:07 | EKG ---
Test Reason : Blood Pressure : / mmHG Vent. Rate : 095 BPM Atrial Rate : 095 BPM P-R Int : 174 ms QRS Dur : 078 ms QT Int : 356 ms P-R-T Axes : 074 056 048 degrees QTc Int : 447 ms Sinus rhythm with Premature atrial complexes ST elevation, consider early repolarization, pericarditis, or injury STEMI Abnormal ECG Confirmed by BOONE GORDON ([id number]), city editor MICHELLE PINA ([id number] on 02/16/2019 2:06:53 AM Referred By: Confirmed By:BOONE GORDON
[2019-02-16] MEDS ORDERED: Lisinopril 2.5 MG TAB PO SCH (21:00)
--- NOTE | 2019-02-17 08:51 | DIS ---
DATE OF ADMISSION: 02/09/2019 DATE OF DISCHARGE: 02/14/2019 FINAL DIAGNOSES: 1. Status post acute anterior myocardial infarction. 2. Persistent ST-elevation in the anterior leads. 3. Coronary artery disease. 4. History of hypertension. MEDICATIONS: At time of discharge: 1. Aspirin 81 mg a day. 2. Brilinta 90 mg twice a day. 3. Lisinopril 2.5 mg at bedtime, begin on 02/16/2019. 4. Toprol-XL 25 mg a day, dose to be increased as tolerated. 5. Atorvastatin 40 mg a day. 6. Levothyroxine, continue same dose. Other home medicines are unchanged. HOSPITAL COURSE: Please see admission note for full details. Briefly, Ms. Treviño was admitted to the hospital for acute anterior myocardial infarction. She underwent percutaneous coronary stent implantation on emergency basis. The patient had [address] Knowles, 3.0 x 24 and 2.5 x 16 bare metal stents were placed. The patient also had a 90% mid right coronary stenosis. The initial plan was to keep the patient here and then stent the right coronary artery, but her blood pressure has been on the low side and the ejection fraction is markedly diminished at 25%. Therefore, it is decided to try to treat her medically. Hopefully, her left ventricular function will improve, and at that point, the stent could be done more safely. The patient has a large area of akinesis. Therefore, she is also fitted with a LifeVest. The patient's iron level was somewhat low at 25, ferritin 98.39. The patient did have some anemia. Hemoglobin dropped as low as 9.3, but it was 9.7 today. The echocardiogram done on the did reveal an ejection fraction of 25% to 30%, anterior wall, apex, distal inferior akinetic. The plan will be to try to bring the patient back in a few weeks. If the blood pressure is better, would make it safer to stent the right coronary artery. The patient otherwise will be seen in the office. The medicines as outlined above. Job ID: [id number]
== END 2019-02-14 16:48 | disposition home or self-care (01) | DRG 248 ==
LOC: ERS 17:53 → SDC/OP 19:19 → CCU 19:25 → 2SW 02-12 22:58
PROVIDERS: ADMIT Internal Medicine Cardiovascular Disease; ATTEND Internal Medicine Cardiovascular Disease
PROC: 02703EZ Dilation of Coronary Artery, One Artery with Two Intraluminal Devices, Percutaneous Approach (ICD-10-PCS; principal; 2019-02-09)
PROC: 02C04ZZ Extirpation of Matter from Coronary Artery, One Artery, Percutaneous Endoscopic Approach (ICD-10-PCS; 2019-02-09)
PROC: 4A023N7 Measurement of Cardiac Sampling and Pressure, Left Heart, Percutaneous Approach (ICD-10-PCS; 2019-02-09)
PROC: B2151ZZ Fluoroscopy of Left Heart using Low Osmolar Contrast (ICD-10-PCS; 2019-02-09)
PROC: B2111ZZ Fluoroscopy of Multiple Coronary Arteries using Low Osmolar Contrast (ICD-10-PCS; 2019-02-09)
PROC: 5A2204Z Restoration of Cardiac Rhythm, Single (ICD-10-PCS; 2019-02-09)
PROC: 5A12012 Performance of Cardiac Output, Single, Manual (ICD-10-PCS; 2019-02-09)
DX: I21.09 ST elevation (STEMI) myocardial infarction involving other coronary artery of anterior wall (principal); I49.01 Ventricular fibrillation; I46.9 Cardiac arrest, cause unspecified; I10 Essential (primary) hypertension; E78.00 Pure hypercholesterolemia, unspecified; F41.9 Anxiety disorder, unspecified; E03.9 Hypothyroidism, unspecified; R42 Dizziness and giddiness; I25.5 Ischemic cardiomyopathy; I25.10 Atherosclerotic heart disease of native coronary artery without angina pectoris; R09.02 Hypoxemia; R79.89 Other specified abnormal findings of blood chemistry; Z88.0 Allergy status to penicillin; Z88.8 Allergy status to other drugs, medicaments and biological substances; Z79.82 Long term (current) use of aspirin; Z79.899 Other long term (current) drug therapy; Z95.5 Presence of coronary angioplasty implant and graft
CPT/HCPCS: 36415; 37212; 71045; 80048; 80053; 80061; 82550; 82553; 82728; 83540; 83550; 83690; 83880; 84439; 84443; 84484; 85025; 93005; 93010; 93306; 93798; 96365; 96375; 96376; C1760; C1769; C1876; C1887; J0282; J1644; J1650; J1940; J2405; J3101; J3246; J3475; J7070

== ENCOUNTER 2019-02-21 06:05 | Observation (INO) | payer MEDICARE ==
[2019-02-21] MEDS ORDERED: Diazepam 5 MG TAB ONE (06:19)
[2019-02-21] MEDS ORDERED: Heparin 10,000 UNITS/1 ML VIAL ONE ×2 (07:20→08:48)
[2019-02-21] MEDS ORDERED: Fentanyl 100 MCG/2 ML VIAL ONE (07:21)
[2019-02-21] MEDS ORDERED: Nitroglycerin 100MG/250ML BOT 250 ML ONE (07:26)
[2019-02-21] MEDS ORDERED: Morphine 4 MG/ML VIAL SLOW IVP PRN ×2 (10:07→18:00)
[2019-02-21] MEDS ORDERED: Nitroglycerin 0.4 MG TAB (25 Tab Bottle) SL PRN (10:07)
--- NOTE | 2019-02-21 10:16 | CCL ---
CARDIOLOGY PROCEDURE NOTE: Date: 02/21/19 PROCEDURE: Stent implantation right coronary artery. PROCEDURE IN DETAIL: The patient was brought to the cardiac catheterization lab in the fasting state. She was sedated with oral Valium and intravenous fentanyl. She was prepped and draped in the usual fashion. The right clement in was anesthetized with 1% Xylocaine. Subsequently, under ultrasound guidance, a 6 Irish introducer sheath was placed. A FR4 guide was used. Angiograms were obtained. Following that, heparin was given . The lesion was crossed with a .014 wire, predilated with a 2.5 mm x 20 mm balloon. A 3.0 x 28 mm stent was placed and deployed at 10 atmospheres. The stent expanded very well, appeared to be if anything slightly oversized. The balloon was withdrawn. It was noted that there was some ve ntricularization and dampening of the guide catheter. The guide catheter had to be brought out to the aorta with wire left in place. Angiograms were obtained. It looked like there was some plaque just d istal to the stent. Ultimately, another stent was placed, a 3.0 x 8 drug-coated stent was overlapped and deployed at 11 atmospheres and overlap area at 12 atmospheres. In the more proximal area, the les ion was dilated to 12 atmospheres. The vessel kept ventricularizing, that is the pressure ventricular ized each time when the guide was re-engaged. Flush injections were done and it looked normal. When t he guide was engaged just at the very beginning of the ostium, there was no obstruction and no ventri cularization. Ultimately, it was decided that there was probably some plaque at the ostium, but not f low-limiting, and that the guide was causing spasm, despite nitroglycerin. Ultimately, the wire and g uide were removed, and using a diagnostic 3DRC catheter, there was approximately 30% ostial plaque. N o ventricularization at all with engaging the vessel. It did not look appropriate to stent the ostium . The stent itself looked excellent. Sheath was sutured and placed. The patient tolerated it well. CONCLUSION: 1. Successful PCI of the right coronary artery, 3.0 x 28 mm drug-coated stent, overlapped with a 3.0 x 8 mm stent. 2. Ostial lesion appears to be approximately 30%, [id number], in the right coronary artery. S uccessful PCI.
[2019-02-21] MEDS ORDERED: Iopamidol 370 76% 100 ML VIAL ONE (10:28)
[2019-02-21] MEDS ORDERED: Iopamidol 370 76% 50 ML VIAL FS ONE (10:28)
--- NOTE | 2019-02-21 15:54 | PRG ---
DATE OF SERVICE: 02/21/2019 ADDENDUM: The patient underwent stent implantation in the right coronary artery. The patient has significant left ventricular dysfunction with recent anterior myocardial infarction. We have elected to keep her overnight for 23-hour observation and home in the morning if doing well. She will continue the same medications. The only change will be stop the lisinopril. She is still on aspirin, Brilinta, and metoprolol. Fortunately, her left ventricular function is improving on echocardiogram. She will continue atorvastatin 40 mg a day as well. Job ID: [id number]
[2019-02-21 17:50] VITALS: BMI 23.8
[2019-02-21] MEDS ORDERED: Atorvastatin Calcium 40 MG TAB PO SCH (21:00)
[2019-02-21] MEDS: Sodium Chloride 0.9% 1,000 ML IV SCH (21:53)
[2019-02-21] MEDS: TICAGRELOR 90 MG TABLET PO SCH ×2 (21:53)
[2019-02-22] MEDS: Sodium Chloride 0.9% 1,000 ML IV SCH ×2 (01:28→10:20)
[2019-02-22] MEDS ORDERED: Acetaminophen/Codeine 30-300mg Tablet PO PRN ×2 (02:26)
[2019-02-22 05:55] LABS: #Basophils 0.1 thou/uL (0.0-0.2); #Eosinphils 0.3 thou/uL (0.0-0.7); #Lymphocytes 1.3 thou/uL (1.20-3.40); #Monocytes 0.6 thou/uL (0.11-0.59); #Neutrophils 4.7 thou/uL (1.40-6.50); %Basophils 0.8 % (0.0-1.0); %Eosinophils 4.4 % (0.0-10.0); %Lymphocytes 18.8 % (21.0-51.0); %Neutrophils 67.9 % (42.0-75.0); Hemoglobin 8.9 g/dL (12.0-16.0); Mean Corpuscular HGB CONC 34.1 g/dL (32.0-36.0); Mean Corpuscular Hemoglobin 32.8 pg (27.0-31.0); Mean Corpuscular Volume 96.1 fL (78.0-98.0); Mean Platelet Volume 7.6 fL (7.4-10.4); Platelet Count 434 thou/uL (130-400); RBC Distribution Width 11.9 % (11.5-14.5); Red Blood Cell (RBC) Count 2.71 mill/uL (4.20-5.40); White Blood Cell (WBC) Count 6.9 thou/uL (4.8-10.8)
[2019-02-22] MEDS ORDERED: Levothyroxine Sodium 50 MCG TAB PO SCH (06:00)
[2019-02-22 06:09] LABS: ALT (SGPT) 16 U/L (8-55); AST (SGOT) 17 U/L (5-34); Alkaline Phosphatase 80 U/L (40-150); Anion Gap 10 mmol/L (10-20); BUN (Urea Nitrogen) 14 mg/dL (9.8-20.1); Bilirubin, Total 0.4 mg/dL (0.2-1.2); Calc. Creatinine Clearance 48 mL/min (70-130); Calcium 8.5 mg/dL (7.8-10.44); Carbon Dioxide 22 mmol/L (23-31); Chloride 110 mmol/L (98-107); Estimated GFR-MDRD 56; Globulin 2.5 g/dL (2.4-3.5); Glucose 108 mg/dL (83-110); Potassium 4.1 mmol/L (3.5-5.1); Protein, Total 5.5 g/dL (6.0-8.3); Sodium 138 mmol/L (136-145)
[2019-02-22 08:36] VITALS: BP 112/64; TEMP 98.6
[2019-02-22] MEDS ORDERED: Calcium Carbonate 600 MG TAB PO SCH (09:00)
[2019-02-22] MEDS ORDERED: Prevnar 13-Val Conj/PF 0.5 ML SYRINGE IM ONE (09:00)
[2019-02-22] MEDS ORDERED: Aspirin Chewable 81 MG TAB PO SCH (09:00)
[2019-02-22] MEDS ORDERED: Multivitamins CHEW w/Iron Tablet PO SCH (09:00)
[2019-02-22] MEDS: TICAGRELOR 90 MG TABLET PO SCH (09:01)
--- NOTE | 2019-02-26 14:47 | EKG ---
Test Reason : POST STENT Blood Pressure : / mmHG Vent. Rate : 070 BPM Atrial Rate : 070 BPM P-R Int : 172 ms QRS Dur : 088 ms QT Int : 466 ms P-R-T Axes : 072 066 152 degrees QTc Int : 503 ms Normal sinus rhythm Marked T wave abnormality, consider anterolateral ischemia Prolonged QT Abnormal ECG Confirmed by MARIKA LOCKETT ([id number]) on 02/26/2019 2:46:57 PM Referred By: RISHI Confirmed By:MARIKA LOCKETT
--- NOTE | 2019-02-26 15:02 | EKG ---
Test Reason : A.M. Blood Pressure : / mmHG Vent. Rate : 091 BPM Atrial Rate : 091 BPM P-R Int : 150 ms QRS Dur : 084 ms QT Int : 426 ms P-R-T Axes : 075 067 227 degrees QTc Int : 523 ms Normal sinus rhythm Marked T wave abnormality, consider anterolateral ischemia Prolonged QT Abnormal ECG Confirmed by MARIKA LOCKETT ([id number]) on 02/26/2019 3:01:43 PM Referred By: Pierre BLACKWELL Confirmed By:MARIKA LOCKETT
== END 2019-02-22 12:35 | disposition home or self-care (01) ==
LOC: SDC 06:05 → 2SW 17:34
PROVIDERS: ADMIT Internal Medicine Cardiovascular Disease; ATTEND Internal Medicine Cardiovascular Disease
PROC: 027034Z Dilation of Coronary Artery, One Artery with Drug-eluting Intraluminal Device, Percutaneous Approach (ICD-10-PCS; principal; 2019-02-21)
DX: I25.10 Atherosclerotic heart disease of native coronary artery without angina pectoris (principal); I10 Essential (primary) hypertension; Z88.0 Allergy status to penicillin
CPT/HCPCS: 76942; 80053 ×2; 85025 ×2; 85347 ×3; 85610; 85730; 93005 ×2; 93798; 96360; 96361 ×2; C1769 ×2; C1874; C1887; C9600; G0378; 36415; 92928; 93010; J1644; J3010; Q9967

== ENCOUNTER 2019-06-12 12:07 | Outpatient (CLI) | payer MEDICARE ==
[2019-06-12 13:03] LABS: #Basophils 0.1 thou/uL (0.0-0.2); #Eosinphils 0.2 thou/uL (0.0-0.7); #Lymphocytes 1.8 thou/uL (1.20-3.40); #Monocytes 0.6 thou/uL (0.11-0.59); #Neutrophils 4.7 thou/uL (1.40-6.50); %Eosinophils 3.2 % (0.0-10.0); %Lymphocytes 24.9 % (21.0-51.0); %Monocytes 8.1 % (0.0-10.0); %Neutrophils 62.8 % (42.0-75.0); Hemoglobin 13.3 g/dL (12.0-16.0); Mean Corpuscular Hemoglobin 31.7 pg (27.0-31.0); Mean Corpuscular Volume 93.2 fL (78.0-98.0); Mean Platelet Volume 8.8 fL (7.4-10.4); Platelet Count 296 thou/uL (130-400); RBC Distribution Width 12.6 % (11.5-14.5); Red Blood Cell (RBC) Count 4.21 mill/uL (4.20-5.40); White Blood Cell (WBC) Count 7.4 thou/uL (4.8-10.8)
[2019-06-12 13:24] LABS: ALT (SGPT) 166 U/L (8-55); AST (SGOT) 111 U/L (5-34); Albumin 4.6 g/dL (3.4-4.8); Alkaline Phosphatase 415 U/L (40-150); Anion Gap 13 mmol/L (10-20); BUN (Urea Nitrogen) 20 mg/dL (9.8-20.1); Bilirubin, Total 0.7 mg/dL (0.2-1.2); Calc. Creatinine Clearance 0 mL/min (70-130); Carbon Dioxide 25 mmol/L (23-31); Chloride 105 mmol/L (98-107); Estimated GFR-MDRD 53; Globulin 2.9 g/dL (2.4-3.5); Glucose 88 mg/dL (83-110); Potassium 4.2 mmol/L (3.5-5.1); Protein, Total 7.5 g/dL (6.0-8.3); Sodium 139 mmol/L (136-145)
== END 2019-06-12 12:08 | disposition home or self-care (01) ==
LOC: LABBT 12:07
PROVIDERS: ATTEND Internal Medicine Cardiovascular Disease
DX: Z01.812 Encounter for preprocedural laboratory examination (principal)
CPT/HCPCS: 80053; 85025

== ENCOUNTER 2019-06-17 05:58 | Observation (INO) | payer MEDICARE ==
[2019-06-12 12:16] VITALS: BMI 22.4
[2019-06-17] MEDS ORDERED: Lidocaine 1% (PF) 30 ML VIAL ONE (06:24)
[2019-06-17] MEDS ORDERED: Midazolam HCl 2 mg/2 ml Vial ONE (08:06)
[2019-06-17] MEDS ORDERED: Fentanyl 100 MCG/2 ML VIAL ONE (08:06)
[2019-06-17] MEDS ORDERED: Heparin 10,000 UNITS/1 ML VIAL ONE ×2 (08:46→09:36)
[2019-06-17] MEDS ORDERED: Nitroglycerin 100MG/250ML BOT 250 ML ONE (08:48)
[2019-06-17] MEDS ORDERED: Aspirin Chewable 81 MG TAB ONE (09:41)
[2019-06-17] MEDS ORDERED: Nitroglycerin 0.4 MG TAB (25 Tab Bottle) SL PRN (11:49)
[2019-06-17] MEDS ORDERED: Acetaminophen/Codeine 30-300mg Tablet PO PRN ×2 (11:49)
[2019-06-17] MEDS ORDERED: Iopamidol 370 76% 100 ML VIAL ONE (14:03)
[2019-06-17] MEDS ORDERED: Iopamidol 370 76% 50 ML VIAL FS ONE (14:03)
[2019-06-17] MEDS ORDERED: Acetaminophen 325 MG TAB PO PRN (19:05)
[2019-06-17] MEDS: TICAGRELOR 90 MG TABLET PO SCH (20:15)
[2019-06-17] MEDS ORDERED: Atorvastatin Calcium 40 MG TAB PO SCH (21:00)
[2019-06-18] MEDS ORDERED: Levothyroxine Sodium 50 MCG TAB PO SCH (06:00)
[2019-06-18 08:06] VITALS: BP 132/63; TEMP 98.1
[2019-06-18] MEDS: TICAGRELOR 90 MG TABLET PO SCH (08:55)
[2019-06-18] MEDS ORDERED: Multivit, Therapeutic 1 TAB PO SCH (09:00)
[2019-06-18] MEDS ORDERED: Calcium Carbonate 600 MG TAB PO SCH (09:00)
[2019-06-18] MEDS ORDERED: Aspirin 81 mg Enteric Coated Tablet PO SCH (09:00)
--- NOTE | 2019-06-19 05:00 | DIS ---
DATE OF ADMISSION: 06/17/2019 DATE OF DISCHARGE: 06/18/2019 Ms. Treviño underwent heart catheterization yesterday, revealed the followin. Left main stenosis. 2. LAD: The proximal LAD stent had diffuse in-stent restenosis approximately 80%. The mid LAD stent had approximately 30% restenosis. Circumflex, no obstructive stenosis. Right coronary stent widely patent. No restenosis. 3. Ejection fraction was 60%. The patient underwent repeat stenting of the proximal LAD stent. A drug-eluting stent 3 mm x 28 mm was deployed and post dilated to 14 atmospheres with good result. The patient did well last night and is released home this morning. The medicines were the identical to those on admission. Recent hemoglobin was 13.3, potassium was 4.2. Most recent LDL cholesterol was 37. Job ID: [id number]
--- NOTE | 2019-06-19 16:46 | EKG ---
Test Reason : POST STEN-LAD X2 BAL Blood Pressure : / mmHG Vent. Rate : 060 BPM Atrial Rate : 060 BPM P-R Int : 176 ms QRS Dur : 092 ms QT Int : 416 ms P-R-T Axes : 067 067 068 degrees QTc Int : 416 ms Normal sinus rhythm Normal ECG Confirmed by MARIKA LOCKETT ([id number]) on 06/19/2019 4:46:38 PM Referred By: RISHI Confirmed By:MARIKA LOCKETT
== END 2019-06-18 11:16 | disposition home or self-care (01) ==
LOC: CCL 05:58 → 2SW 10:20
PROVIDERS: ADMIT Internal Medicine Cardiovascular Disease; ATTEND Internal Medicine Cardiovascular Disease
PROC: 027044Z Dilation of Coronary Artery, One Artery with Drug-eluting Intraluminal Device, Percutaneous Endoscopic Approach (ICD-10-PCS; principal; 2019-06-17)
PROC: 4A023N7 Measurement of Cardiac Sampling and Pressure, Left Heart, Percutaneous Approach (ICD-10-PCS; 2019-06-17)
PROC: B2111ZZ Fluoroscopy of Multiple Coronary Arteries using Low Osmolar Contrast (ICD-10-PCS; 2019-06-17)
DX: I25.119 Atherosclerotic heart disease of native coronary artery with unspecified angina pectoris (principal); E78.00 Pure hypercholesterolemia, unspecified; I11.0 Hypertensive heart disease with heart failure; I50.9 Heart failure, unspecified; I25.2 Old myocardial infarction; E89.0 Postprocedural hypothyroidism; Z79.02 Long term (current) use of antithrombotics/antiplatelets; Z79.82 Long term (current) use of aspirin; Z79.899 Other long term (current) drug therapy; Z88.0 Allergy status to penicillin; Z88.8 Allergy status to other drugs, medicaments and biological substances; Z95.1 Presence of aortocoronary bypass graft; Z95.5 Presence of coronary angioplasty implant and graft
CPT/HCPCS: 76942; 85347 ×2; 93005; 93458; 93798; C1769 ×2; C1874; C1887; C9600; G0378 ×2; 92928; 99152; 99153; J1644; J2001; J2250; J3010; Q9967

== ENCOUNTER 2019-08-12 09:13 | Outpatient (CLI) | payer MEDICARE ==
--- NOTE | 2019-08-12 09:46 | ULT ---
Gallbladder ultrasound: Multiple grayscale images of right upper quadrant obtained according to protocol. INDICATION: Pain FINDINGS: Liver: Normal Gallbladder: Normal Gallbladder wall: Normal. Zambrano's Sign: Negative Common bile duct is normal. Ascites: None IMPRESSION: Normal gallbladder.
== END 2019-08-12 09:14 | disposition home or self-care (01) ==
LOC: SCSULT 09:13
PROVIDERS: ATTEND Internal Medicine Cardiovascular Disease
DX: R94.5 Abnormal results of liver function studies (principal)
CPT/HCPCS: 76705

== ENCOUNTER 2019-09-03 11:57 | Outpatient (CLI) | payer MEDICARE ==
--- NOTE | 2019-09-03 12:50 | RAD ---
4 views of the lumbar spine: 09/03/2019 COMPARISON: 11/22/2018 HISTORY: Lumbar radiculopathy, prior lumbar spine surgery, back pain FINDINGS: 5 lumbar type vertebral bodies are present with stable postoperative hardware at L4 and L5 including bilateral pedicle screws with vertically oriented interlocking rods. There is a stable intervertebral disc device present at the L4-5 level. There is anterolisthesis of L4 on L5 measuring approximately 11 mm on neutral imaging, 13 mm on flexi on imaging, and 14 mm on extension imaging. No acute osseous abnormality. The patient appears status post bilateral laminectomy at the L4 and L5 levels. IMPRESSION: Postoperative and degenerative change within the lumbar spine as described above.
== END 2019-09-03 11:58 | disposition home or self-care (01) ==
LOC: BICRAD 11:57
PROVIDERS: ATTEND Neurological Surgery
DX: M47.26 Other spondylosis with radiculopathy, lumbar region (principal); Z98.890 Other specified postprocedural states
CPT/HCPCS: 72120

== ENCOUNTER 2019-11-07 15:43 | Emergency (ER) | payer MEDICARE ==
[~2019-11-07 15:43] MED LIST changes: -Amiodarone 150 MG/3 ML VIAL ONE; -Heparin 10,000 UNITS/ 10 ML VIAL ONE; +Iopamidol-370 76% 500 ML 1 ML ONE; -Sodium Chloride 0.9% Irrigation 1000 ML BOT ONE
--- NOTE | 2019-11-07 16:10 | RAD ---
Chest one view HISTORY: Chest pain. COMPARISON: 02/12/2019. FINDINGS: Cardiac silhouette is magnified by projection. Pulmonary vasculature is unremarkable. Lungs remain hyperinflated. Mediastinum is midline allowing for S shaped curvature of the thoracic spine. No lobar consolidation or evidence of pneumothorax. IMPRESSION: No active cardiopulmonary abnormalities are demonstrated.
[2019-11-07 16:29] LABS: #Basophils 0.1 thou/uL (0.0-0.2); #Eosinphils 0.1 thou/uL (0.0-0.7); #Lymphocytes 1.7 thou/uL (1.20-3.40); #Monocytes 0.5 thou/uL (0.11-0.59); #Neutrophils 3.7 thou/uL (1.40-6.50); %Basophils 1.1 % (0.0-1.0); %Lymphocytes 27.2 % (21.0-51.0); %Monocytes 7.8 % (0.0-10.0); %Neutrophils 61.8 % (42.0-75.0); Mean Corpuscular HGB CONC 33.1 g/dL (32.0-36.0); Mean Corpuscular Hemoglobin 32.2 pg (27.0-31.0); Mean Corpuscular Volume 97.3 fL (78.0-98.0); Mean Platelet Volume 8.6 fL (7.4-10.4); Platelet Count 303 thou/uL (130-400); RBC Distribution Width 12.3 % (11.5-14.5); Red Blood Cell (RBC) Count 4.04 mill/uL (4.20-5.40); White Blood Cell (WBC) Count 6.1 thou/uL (4.8-10.8)
[2019-11-07 16:50] LABS: ALT (SGPT) 34 U/L (8-55); AST (SGOT) 34 U/L (5-34); Albumin 4.6 g/dL (3.4-4.8); Alkaline Phosphatase 85 U/L (40-110); Anion Gap 11 mmol/L (10-20); BUN (Urea Nitrogen) 19 mg/dL (9.8-20.1); Bilirubin, Total 0.8 mg/dL (0.2-1.2); Calc. Creatinine Clearance 0 mL/min (70-130); Calcium 9.6 mg/dL (7.8-10.44); Carbon Dioxide 28 mmol/L (23-31); Chloride 103 mmol/L (98-107); Estimated GFR-MDRD 46; Glucose 101 mg/dL (83-110); Potassium 3.9 mmol/L (3.5-5.1); Protein, Total 7.6 g/dL (6.0-8.3); Sodium 138 mmol/L (136-145)
[2019-11-07] MEDS ORDERED: Aspirin Chewable 81 MG TAB ONE (19:07)
--- NOTE | 2019-11-07 20:10 | CT ---
CTA OF THE CHEST: 11/07/19 COMPARISON: None. HISTORY: Chest pain. TECHNIQUE: Multiple contiguous axial images were obtained in the CTA of the chest with contrast per pulmonary em bolism protocol. 3D oblique MIP reformats and direct coronal reformats were performed. FINDINGS: The pulmonary arteries are well opacified without filling defects to suggest pulmonary emboli. The he art is normal in size without focal cardiac abnormality. No hilar or mediastinal lymphadenopathy are seen. Calcifications are seen in the coronary arteries. No suspicious pulmonary nodules are seen. No focal infiltrates are seen in the lungs. No pneumothorax or pleural effusion are seen. The osseous structures and visualized subdiaphragmatic structures are unremarkable. The chest wall so ft tissues are unremarkable. IMPRESSION: No evidence of pulmonary thromboembolism. POS: C
== END 2019-11-07 21:49 | disposition home or self-care (01) ==
LOC: ERS 15:43
DX: R07.89 Other chest pain (principal); I10 Essential (primary) hypertension; E78.00 Pure hypercholesterolemia, unspecified; F41.9 Anxiety disorder, unspecified; Z79.899 Other long term (current) drug therapy
CPT/HCPCS: 36415; 71045; 71275; 80053; 84484; 85025; 85379; 93005; 96360; Q9967

== ENCOUNTER 2020-12-16 16:26 | Emergency (ER) | payer MEDICARE ==
[2020-12-16 17:34] LABS: #Basophils 0.1 thou/uL (0.0-0.2); #Eosinphils 0.1 thou/uL (0.0-0.7); #Lymphocytes 1.5 thou/uL (1.20-3.40); #Monocytes 0.7 thou/uL (0.11-0.59); #Neutrophils 6.9 thou/uL (1.40-6.50); %Basophils 0.8 % (0.0-1.0); %Eosinophils 1.6 % (0.0-10.0); %Lymphocytes 16.4 % (21.0-51.0); %Monocytes 7.5 % (0.0-10.0); %Neutrophils 73.8 % (42.0-75.0); Hemoglobin 12.3 g/dL (12.0-16.0); Mean Corpuscular HGB CONC 33.1 g/dL (32.0-36.0); Mean Corpuscular Hemoglobin 32.6 pg (27.0-31.0); Mean Corpuscular Volume 98.5 fL (78.0-98.0); Mean Platelet Volume 8.8 fL (7.4-10.4); Platelet Count 288 thou/uL (130-400); RBC Distribution Width 11.3 % (11.5-14.5); Red Blood Cell (RBC) Count 3.77 mill/uL (4.20-5.40); White Blood Cell (WBC) Count 9.4 thou/uL (4.8-10.8)
[2020-12-16 17:58] LABS: Bacteria/HPF None Seen HPF (None Seen); Bilirubin Negative (Negative); Blood, Urine Trace (Negative); Clarity Clear (Clear); Glucose, Urine (Dipstick) Normal (Negative); Ketone, Urine Negative (Negative); Leukocyte Negative Leu/uL (Negative); Nitrite Negative (Negative); Protein, Urine (Dipstick) Negative (Neg-Trace); Specific Gravity, Urine 1.013 (1.002-1.036); Squamous Epithelial 0-3 HPF (0-3); Urobilinogen Normal mg/dL (Less than 2); WBC/HPF 0-3 HPF (0-3)
[2020-12-16 18:14] LABS: ALT (SGPT) 27 U/L (8-55); AST (SGOT) 28 U/L (5-34); Albumin 4.3 g/dL (3.4-4.8); Alkaline Phosphatase 81 U/L (40-110); Anion Gap 17 mmol/L (10-20); BUN (Urea Nitrogen) 23 mg/dL (9.8-20.1); Bilirubin, Total 0.7 mg/dL (0.2-1.2); Calc. Creatinine Clearance 0 mL/min (70-130); Calcium 9.2 mg/dL (7.8-10.44); Carbon Dioxide 23 mmol/L (23-31); Chloride 103 mmol/L (98-107); Globulin 2.8 g/dL (2.4-3.5); Glucose 107 mg/dL (83-110); Lipase 57 U/L (8-78); Potassium 3.9 mmol/L (3.5-5.1); Protein, Total 7.1 g/dL (5.8-8.1); Sodium 139 mmol/L (136-145)
--- NOTE | 2020-12-16 18:46 | CT ---
CT ABDOMEN AND PELVIS WITH IV CONTRAST: HISTORY: Left lower quadrant abdominal pain. Pain radiates to the back. No nausea, vomiting or diarrh ea. COMPARISON: None FINDINGS: The lung bases are unremarkable. No calcified gallstones are noted. The liver, spleen, pancreas, adre nal glands and kidneys appear normal. No free air, free fluid or lymphadenopathy seen in the abdomen or pelvis. The small bowel loops are not abnormally dilated. A normal-appearing appendix is p resent. Uterus is present. There is fecal material in the colon and rectum. There are vascular calcifications without evidence of aneurysmal dilatation of the abdominal aorta. There are postop tani nges of posterior spinal fusion at L4-5 level with the grade 1 anterolistheses of L4 over L5. Metallic hardware is intact. IMPRESSION: 1. No acute process 2. Constipation
== END 2020-12-16 19:33 | disposition home or self-care (01) ==
LOC: ERS 16:26
DX: S39.011A Strain of muscle, fascia and tendon of abdomen, initial encounter (principal); I10 Essential (primary) hypertension; E78.00 Pure hypercholesterolemia, unspecified; E03.9 Hypothyroidism, unspecified; I25.2 Old myocardial infarction; Z79.82 Long term (current) use of aspirin; Z79.899 Other long term (current) drug therapy; X50.9XXA Other and unspecified overexertion or strenuous movements or postures, initial encounter
CPT/HCPCS: 36415; 74177; 80053; 81003; 81015; 83605; 83690; 84484; 85025; Q9967

== ENCOUNTER 2020-12-21 14:03 | Outpatient (CLI) | payer MEDICARE | END 2020-12-21 14:04 | disposition home or self-care (01) | LOC: BICRAD 14:03 | PROVIDERS: ATTEND Family Medicine | DX: M25.552 Pain in left hip (principal) ==

== ENCOUNTER 2021-06-01 15:33 | Outpatient (CLI) | payer MEDICARE | END 2021-06-01 15:34 | disposition home or self-care (01) | LOC: BICMAMMO 15:33 | PROVIDERS: ATTEND Family Medicine | DX: Z12.31 Encounter for screening mammogram for malignant neoplasm of breast (principal); Z80.3 Family history of malignant neoplasm of breast; Z91.89 Other specified personal risk factors, not elsewhere classified | CPT/HCPCS: 77063; 77067 ==

== ENCOUNTER 2021-11-10 14:20 | Outpatient (CLI) | payer MEDICARE | END 2021-11-10 14:21 | disposition home or self-care (01) | LOC: BICMAMMO 14:20 | PROVIDERS: ATTEND Family Medicine | DX: N95.1 Menopausal and female climacteric states (principal); M81.0 Age-related osteoporosis without current pathological fracture | CPT/HCPCS: 77080 ==

== ENCOUNTER 2022-08-28 14:09 | Outpatient (CLI) | payer MEDICARE | END 2022-08-28 14:10 | disposition home or self-care (01) | LOC: BICMAMMO 14:09 | PROVIDERS: ATTEND Family Medicine | DX: Z12.31 Encounter for screening mammogram for malignant neoplasm of breast (principal); Z80.3 Family history of malignant neoplasm of breast; Z91.89 Other specified personal risk factors, not elsewhere classified | CPT/HCPCS: 77063; 77067 ==

== ENCOUNTER 2022-12-06 05:27 | Observation (INO) | payer MEDICARE ==
[2022-12-06] MEDS ORDERED: Nitroglycerin 2% Ointment 1 INCH/1 GM Packet ONE (06:03)
[2022-12-06] MEDS ORDERED: Aspirin Chewable 81 MG TAB ONE (06:03)
[2022-12-06 06:14] LABS: #Basophils 0.1 thou/uL (0.0-0.2); #Eosinphils 0.2 thou/uL (0.0-0.7); #Lymphocytes 1.4 thou/uL (1.20-3.40); #Monocytes 0.3 thou/uL (0.11-0.59); #Neutrophils 3.3 thou/uL (1.40-6.50); %Basophils 1.2 % (0.0-1.0); %Lymphocytes 26.1 % (21.0-51.0); %Monocytes 6.4 % (0.0-10.0); %Neutrophils 63.2 % (42.0-75.0); Hemoglobin 12.1 g/dL (12.0-16.0); Mean Corpuscular HGB CONC 33.6 g/dL (32.0-36.0); Mean Corpuscular Hemoglobin 33.6 pg (27.0-31.0); Mean Platelet Volume 8.6 fL (7.4-10.4); Platelet Count 243 10x3/uL (130-400); White Blood Cell (WBC) Count 5.2 10x3/uL (4.8-10.8)
[2022-12-06] MEDS ORDERED: Nitroglycerin 0.4 MG TAB 1 EACH ONE (06:17)
[2022-12-06 06:37] LABS: ALT (SGPT) 15 U/L (8-55); AST (SGOT) 20 U/L (5-34); Albumin 4.1 g/dL (3.4-4.8); Alkaline Phosphatase 56 U/L (40-110); Anion Gap 10 mmol/L (10-20); BUN (Urea Nitrogen) 30 mg/dL (9.8-20.1); Bilirubin, Total 0.5 mg/dL (0.2-1.2); Calc. Creatinine Clearance 0 mL/min (70-130); Calcium 9.4 mg/dL (7.8-10.44); Carbon Dioxide 27 mmol/L (23-31); Chloride 106 mmol/L (98-107); Estimated GFR 35; Globulin 2.4 g/dL (2.4-3.5); Glucose 111 mg/dL (83-110); Potassium 3.9 mmol/L (3.5-5.1); Protein, Total 6.5 g/dL (5.8-8.1); Sodium 139 mmol/L (136-145)
[2022-12-06 09:31] LABS: Troponin I Less than 0.010 ng/mL (< 0.028)
[2022-12-06] MEDS ORDERED: Nitroglycerin 0.4 MG TAB (25 Tab Bottle) SL PRN (11:16)
[2022-12-06] MEDS ORDERED: Lactated Ringer's 1,000 ML IV SCH (11:45)
[2022-12-06 12:44] LABS: Troponin I Less than 0.010 ng/mL (< 0.028)
[2022-12-06 16:28] VITALS: BMI 22.7
[2022-12-06] MEDS ORDERED: Communication Order-Pharmacy FS SCH ×2 (17:00)
[2022-12-06] MEDS ORDERED: Atorvastatin Calcium 40 MG TAB PO SCH (21:00)
[2022-12-06] MEDS ORDERED: HYDROcodone/Acetaminophen 5/325 mg Tablet PO SCH (22:30)
[2022-12-07 03:24] VITALS: TEMP 98.5
[2022-12-07 05:01] LABS: #Eosinphils 0.1 thou/uL (0.0-0.7); #Lymphocytes 1.9 thou/uL (1.20-3.40); #Monocytes 0.7 thou/uL (0.11-0.59); %Basophils 0.5 % (0.0-1.0); %Eosinophils 1.1 % (0.0-10.0); %Lymphocytes 28.2 % (21.0-51.0); %Neutrophils 59.2 % (42.0-75.0); Hemoglobin 11.5 g/dL (12.0-16.0); Mean Corpuscular HGB CONC 34.7 g/dL (32.0-36.0); Mean Corpuscular Hemoglobin 34.4 pg (27.0-31.0); Mean Corpuscular Volume 99.1 fl (78.0-98.0); Mean Platelet Volume 8.9 fL (7.4-10.4); Platelet Count 225 10x3/uL (130-400); RBC Distribution Width 10.9 % (11.5-14.5); Red Blood Cell (RBC) Count 3.35 mill/uL (4.20-5.40); White Blood Cell (WBC) Count 6.7 10x3/uL (4.8-10.8)
[2022-12-07 05:17] LABS: Anion Gap 12 mmol/L (10-20); BUN (Urea Nitrogen) 20 mg/dL (9.8-20.1); Calc. Creatinine Clearance 38 mL/min (70-130); Calcium 8.7 mg/dL (7.8-10.44); Carbon Dioxide 24 mmol/L (23-31); Chloride 109 mmol/L (98-107); Estimated GFR 52; Glucose 111 mg/dL (83-110); Potassium 3.7 mmol/L (3.5-5.1); Sodium 141 mmol/L (136-145)
[2022-12-07] MEDS: Calcium Carbonate 600 MG TAB PO SCH ×2 (06:14→06:18)
[2022-12-07] MEDS ORDERED: Heparin 10,000 UNITS/ 10 ML VIAL ONE (06:16)
[2022-12-07] MEDS ORDERED: Lidocaine 1% (PF) 30 ML VIAL ONE (06:16)
[2022-12-07] MEDS ORDERED: FENTANYL 50 MCG/ML 1 ML VIAL ONE (07:02)
[2022-12-07] MEDS ORDERED: Midazolam HCl 2 mg/2 ml Vial ONE (07:03)
[2022-12-07] MEDS ORDERED: Metoprolol Tartrate 5 MG/5 ML VIAL ONE (07:27)
[2022-12-07] MEDS ORDERED: Nitroglycerin 100MG/250ML BOT 250 ML ONE (07:27)
[2022-12-07] MEDS ORDERED: Sodium Chloride 0.9% 200 ML IV PRN (08:01)
[2022-12-07] MEDS ORDERED: Nitroglycerin 0.4 MG TAB (25 Tab Bottle) SL PRN (08:01)
[2022-12-07] MEDS ORDERED: Aspirin 81 mg Enteric Coated Tablet PO SCH (09:00)
[2022-12-07] MEDS ORDERED: Clopidogrel Bisulfate 75 MG TAB PO SCH (09:00)
[2022-12-07] MEDS ORDERED: HYDROcodone/Acetaminophen 5/325 mg Tablet PO SCH (09:00)
[2022-12-07] MEDS ORDERED: Iopamidol 370 76% 100 ML VIAL ONE (12:20)
[2022-12-07 12:34] VITALS: BP 134/72
== END 2022-12-07 12:26 | disposition home or self-care (01) ==
LOC: ERS 05:27 → ERHOLD 07:43 → 2SW 15:30
PROVIDERS: ADMIT Hospitalist; ATTEND Hospitalist
PROC: 4A023N7 Measurement of Cardiac Sampling and Pressure, Left Heart, Percutaneous Approach (ICD-10-PCS; principal; 2022-12-07)
PROC: B2111ZZ Fluoroscopy of Multiple Coronary Arteries using Low Osmolar Contrast (ICD-10-PCS; 2022-12-07)
DX: R07.2 Precordial pain (principal); I10 Essential (primary) hypertension; I25.10 Atherosclerotic heart disease of native coronary artery without angina pectoris; E89.0 Postprocedural hypothyroidism; I25.2 Old myocardial infarction; K21.9 Gastro-esophageal reflux disease without esophagitis; Z79.02 Long term (current) use of antithrombotics/antiplatelets; Z79.82 Long term (current) use of aspirin; Z79.890 Hormone replacement therapy; Z79.899 Other long term (current) drug therapy; Z88.0 Allergy status to penicillin; Z88.8 Allergy status to other drugs, medicaments and biological substances; Z95.5 Presence of coronary angioplasty implant and graft; Z20.822 Contact with and (suspected) exposure to COVID-19
CPT/HCPCS: 71045; 80048; 80053; 83880; 84484 ×2; 85025 ×2; 93005; 93458; 99285; C1769; G0378 ×3; J3010; U0003; U0005; 36415; 99152; 99153; J1644; J2001; J2250; J7120; Q9967

== ENCOUNTER 2023-04-27 08:15 | Outpatient (CLI) | payer MEDICARE | END 2023-04-27 08:16 | disposition home or self-care (01) | LOC: ULT 08:15 | PROVIDERS: ATTEND Internal Medicine Cardiovascular Disease | DX: R10.10 Upper abdominal pain, unspecified (principal); I77.811 Abdominal aortic ectasia | CPT/HCPCS: 76775 ==

== ENCOUNTER 2023-09-18 12:31 | Outpatient (CLI) | payer MEDICARE | END 2023-09-18 12:32 | disposition home or self-care (01) | LOC: BICMAMMO 12:31 | PROVIDERS: ATTEND Family Medicine | DX: Z12.31 Encounter for screening mammogram for malignant neoplasm of breast (principal); Z91.89 Other specified personal risk factors, not elsewhere classified; Z80.3 Family history of malignant neoplasm of breast | CPT/HCPCS: 77063; 77067 ==

== ENCOUNTER 2023-09-27 01:26 | Emergency (ER) | payer MEDICARE ==
[2023-09-27 02:23] LABS: #Eosinphils 0.1 thou/uL (0.0-0.7); #Monocytes 0.7 thou/uL (0.11-0.59); %Basophils 0.4 % (0.0-1.0); %Eosinophils 0.5 % (0.0-10.0); %Lymphocytes 13.1 % (21.0-51.0); %Neutrophils 78.7 % (42.0-75.0); Hematocrit 33.9 % (36.0-47.0); Hemoglobin 11.8 g/dL (12.0-16.0); Mean Corpuscular HGB CONC 34.8 g/dL (32.0-36.0); Mean Corpuscular Hemoglobin 33.6 pg (27.0-31.0); Mean Corpuscular Volume 96.6 fl (78.0-98.0); Mean Platelet Volume 10.6 fL (7.4-10.4); Platelet Count 258 10x3/uL (130-400); RBC Distribution Width 12.2 % (11.5-14.5); Red Blood Cell (RBC) Count 3.51 mill/uL (4.20-5.40); White Blood Cell (WBC) Count 10.1 10x3/uL (4.8-10.8)
[2023-09-27 02:46] LABS: ALT (SGPT) 22 U/L (8-55); AST (SGOT) 25 U/L (5-34); Albumin 3.8 g/dL (3.4-4.8); Alkaline Phosphatase 48 U/L (40-110); Anion Gap 13 mmol/L (10-20); BUN (Urea Nitrogen) 16 mg/dL (9.8-20.1); Bilirubin, Total 1.2 mg/dL (0.2-1.2); Calc. Creatinine Clearance 0 mL/min (70-130); Calcium 9.3 mg/dL (7.8-10.44); Carbon Dioxide 24 mmol/L (23-31); Chloride 102 mmol/L (98-107); Estimated GFR 40; Globulin 2.4 g/dL (2.4-3.5); Glucose 122 mg/dL (83-110); Magnesium 1.9 mg/dL (1.6-2.6); Potassium 3.9 mmol/L (3.5-5.1); Protein, Total 6.2 g/dL (5.8-8.1); Sodium 135 mmol/L (136-145)
[2023-09-27 02:56] LABS: Troponin I Less than 0.010 ng/mL (< 0.028)
[2023-09-27 03:23] LABS: SARS-CoV-2 NAA Rapid Test Not Detected (NotDetected)
== END 2023-09-27 05:47 | disposition home or self-care (01) ==
LOC: ERS 01:26
DX: R53.1 Weakness (principal); I10 Essential (primary) hypertension; E78.00 Pure hypercholesterolemia, unspecified; E03.9 Hypothyroidism, unspecified; Z79.899 Other long term (current) drug therapy; Z79.82 Long term (current) use of aspirin; Z20.822 Contact with and (suspected) exposure to COVID-19
CPT/HCPCS: 0240U; 71045; 83735; 83880; 84484; 93005; 99285; 80053; 84443; 85025

== ENCOUNTER 2024-11-21 11:53 | Outpatient (CLI) | payer MEDICARE, OTHER | END 2024-11-21 11:54 | disposition home or self-care (01) | LOC: BICMAMMO 11:53 | PROVIDERS: ATTEND Family Medicine | DX: Z12.31 Encounter for screening mammogram for malignant neoplasm of breast (principal); Z80.3 Family history of malignant neoplasm of breast; Z91.89 Other specified personal risk factors, not elsewhere classified | CPT/HCPCS: 77063; 77067 ==